=== PATIENT | male | born 1955 | race Caucasian/White ===

== ENCOUNTER 2017-06-28 11:20 | Inpatient (IN) | payer OTHER ==
[2017-06-28] MEDS ORDERED: SODIUM CHLORIDE 0.9% 1,000 ML IV ONE ×2 (11:45→14:14)
[2017-06-28] MEDS ORDERED: HYDROmorphone 1 MG/ML SYRINGE IVP STA ×4 (11:45→14:16)
[2017-06-28 12:13] LABS: BASOPHILS # (AUTO) 0.1 10^3/uL (0.0-0.1); BASOPHILS % (AUTO) 0.6 %; EOSINOPHILS % (AUTO) 0.4 %; HGB - HEMOGLOBIN 14.6 g/dL (14.0-18.0); LYMPHOCYTES # (AUTO) 1.8 10^3/uL (1.5-3.5); LYMPHOCYTES % (AUTO) 14.3 %; MEAN CORPUSCULAR HEMOGLOBIN 34.1 pg (27.0-31.0); MEAN CORPUSCULAR HGB CONC 35.2 g/dL (32.0-36.0); MONOCYTES # (AUTO) 1.1 10^3/uL (0.0-1.0); MONOCYTES % (AUTO) 8.9 %; NEUTROPHILS # (AUTO) 9.4 10^3/uL (1.5-6.6); NEUTROPHILS % (AUTO) 75.8 %; PLT - PLATELET COUNT 207 10^3/uL (130-450); RED BLOOD COUNT 4.27 10^6/uL (4.70-6.10); RED CELL DISTRIBUTION WIDTH 12.7 % (12.0-15.0); WHITE BLOOD COUNT 12.3 x10^3/uL (4.8-10.8)
[2017-06-28] MEDS ORDERED: IOPAMIDOL-300 100 ML VIAL ONE (12:28)
--- NOTE | 2017-06-28 12:39 | ED Physician Documentation ---
History of Present Illness - Stated complaint Stated Complaint: SIDE PX - Chief complaint Chief Complaint: Abd Pain - Additonal information Additional information: hx from pt 62 male pshx ventral and inguinal hernia severe right lower abd pain and distension started last nightno fever chills no NVD no blood in BM or urine Review of Systems Constitutional: denies: Fever, Chills Cardiac: denies: Chest pain / pressure Respiratory: denies: Dyspnea GI: reports: Abdominal Pain. denies: Nausea, Vomiting, Diarrhea, Bloody / black stool : denies: Dysuria, Hematuria Neurologic: denies: Generalized weakness Endocrine: denies: Easy bruising / bleeding Immunocompromised: denies: Immunocompromised PD PAST MEDICAL HISTORY - Past Medical History Cardiovascular: Hypertension, High cholesterol Respiratory: COPD Neuro: TIA - Past Surgical History Past Surgical History: Yes - Present Medications Home Medications: Ambulatory Orders Medication Instructions Recorded Confirmed Lisinopril 20 mg PO DAILY 04/25/15 06/28/17 Magnesium Oxide 400 mg PO QPM 04/25/15 06/28/17 Naproxen [Naprosyn] 500 mg PO BIDWM 04/25/15 06/28/17 Pantoprazole [Protonix] 40 mg PO QDAC 04/25/15 06/28/17 Potassium Chloride [Micro-K] 10 meq PO DAILYWM 04/25/15 06/28/17 Albuterol Sulfate [Proair 2 puffs INH Q6H PRN 06/28/17 06/28/17 Respiclick] Aspirin [Aspirin EC] 81 mg PO DAILY 06/28/17 06/28/17 Cyclobenzaprine [Flexeril] 10 mg PO TID PRN 06/28/17 06/28/17 Gabapentin [Neurontin] 300 mg PO BID 06/28/17 06/28/17 Mometasone/Formoterol [Dulera 200 2 puffs INH BID 06/28/17 06/28/17 Mcg/5 Mcg Inhaler] Tiotropium [place] [Spiriva] 1 puffs INH DAILY 06/28/17 06/28/17 oxyCODONE [Roxicodone] 5 mg PO BID PRN 06/28/17 06/28/17 - Allergies Allergies/Adverse Reactions: Allergies Allergy/AdvReac Type Severity Reaction Status Date / Time No Known Drug Allergies Allergy Verified 04/25/15 22:56 - Social History Does the pt smoke?: Yes Smoking Status: Current every day smoker Does the pt drink ETOH?: Yes Does the pt have substance abuse?: No PD ED PE NORMAL - Vitals Vital signs reviewed: Yes - General General: Alert and oriented X 3 - HEENT HEENT: PERRL - Neck Neck: Supple, no meningeal sign - Cardiac Cardiac: RRR - Respiratory Respiratory: No respiratory distress, Clear bilaterally - Abdomen Abdomen: Other (tinkling bowel sounds, distended, more distended RLQ, ? palpable mass, diffusley TTP but more so RLQ, no pulsatile mass appreciated, no inguinal heria, prior surgical scars) - Derm Derm: Normal color - Neuro Neuro: Alert and oriented X 3 Results - Vitals Vitals: Vital Signs - 24 hr 06/28/17 06/28/17 06/28/17 11:32 13:50 15:56 Temperature 36.5 C 38.1 C H 37.5 C Heart Rate 114 H 114 H 100 Respiratory 20 18 18 Rate Blood Pressure 163/91 H 149/77 H 123/66 O2 Saturation 95 95 95 06/28/17 06/28/17 18:23 18:25 Temperature Heart Rate Respiratory Rate Blood Pressure O2 Saturation 95 100 Oxygen O2 Source Room air - Labs Labs: Laboratory Tests 06/28/17 06/28/17 06/28/17 12:07 12:07 13:24 WBC 12.3 H RBC 4.27 L Hgb 14.6 Hct 41.4 L MCV 97.0 H MCH 34.1 H MCHC 35.2 RDW 12.7 Plt Count 207 MPV 7.0 L Neut # 9.4 H Lymph # 1.8 Mobile # 1.1 H Eos # 0.0 Baso # 0.1 Absolute Nucleated RBC 0.00 Nucleated RBC % 0.0 Sodium 130 L Potassium 3.9 Chloride 97 L Carbon Dioxide 22 Anion Gap 11.0 BUN 8 Creatinine 0.7 Estimated GFR (MDRD) 115 Glucose 109 H Calcium 8.7 Total Bilirubin 1.2 H AST 16 ALT 15 Alkaline Phosphatase 56 Total Protein 7.6 Albumin 4.3 Globulin 3.3 Albumin/Globulin Ratio 1.3 Lipase < 10 L Urine Color YELLOW Urine Clarity CLEAR Urine pH 6.0 Ur Specific [place] 1.010 Urine Protein NEGATIVE Urine Glucose (UA) NEGATIVE Urine Ketones NEGATIVE Urine Occult Blood NEGATIVE Urine Nitrite NEGATIVE Urine Bilirubin NEGATIVE Urine Urobilinogen 0.2 (NORMAL) Ur Leukocyte Esterase NEGATIVE Ur Microscopic Review NOT INDICATED Urine Culture Comments NOT INDICATED - Rads (name of study) CT AP Radiology: See rad report (acute appy with large appendicolith and probable early perf no abscess) PD MEDICAL DECISION MAKING - ED course ED course: CT = acute appy possible perf called gen surgery Dr Cisneros at 215 PM Departure - Departure Disposition: ED Transfer to [facility] Clinical Impression: Appendicitis Qualifiers: Appendicitis type: acute appendicitis Acute appendicitis type: unspecified acute appendicitis type Qualified Code(s): K35.80 - Unspecified acute appendicitis Discharge Date/Time: 06/28/17 16:26
[2017-06-28 12:40] LABS: ALBUMIN 4.3 g/dL (3.2-5.5); ALBUMIN/GLOBULIN RATIO 1.3 (1.0-2.2); ALKALINE PHOSPHATASE 56 IU/L (42-121); ALT ALANINE AMINOTRANSFERASE 15 IU/L (10-60); AST ASPARTATE AMINOTRANSFERASE 16 IU/L (10-42); BILIRUBIN,TOTAL 1.2 mg/dL (0.2-1.0); BUN - BLOOD UREA NITROGEN 8 mg/dL (6-20); CALCIUM 8.7 mg/dL (8.5-10.3); CARBON DIOXIDE - CO2 22 mmol/L (21-32); CHLORIDE 97 mmol/L (101-111); CREATININE 0.7 mg/dL (0.6-1.2); GFR - MDRD 115 (>89); GLUCOSE 109 mg/dL (70-100); LIPASE < 10 U/L (22-51); SODIUM 130 mmol/L (135-145); TOTAL PROTEIN 7.6 g/dL (6.7-8.2)
[2017-06-28] MEDS ORDERED: IOPAMIDOL-300 100 ML VIAL IVP ONE (13:25)
[2017-06-28 13:32] LABS: BILIRUBIN,URINE NEGATIVE (NEGATIVE); GLUCOSE, URINE (UA) NEGATIVE (NEGATIVE); KETONES,URINE (UA) NEGATIVE (NEGATIVE); LEUKOCYTE ESTERASE, URINE NEGATIVE (NEGATIVE); NITRITE,URINE NEGATIVE (NEGATIVE); OCCULT BLOOD,URINE NEGATIVE (NEGATIVE); PROTEIN,URINE NEGATIVE (NEGATIVE); UROBILINOGEN,URINE 0.2 (NORMAL) E.U./dL (NORMAL)
[2017-06-28 13:36] LABS: CLARITY,URINE CLEAR (CLEAR)
--- NOTE | 2017-06-28 14:00 | CT Report ---
EXAM: CT ANGIOGRAM ABDOMEN AND PELVIS WITH CONTRAST EXAM DATE: 06/28/2017 01:25 PM. CLINICAL HISTORY: Abrupt onset severe abd pain. COMPARISONS: CT abdomen pelvis 05/07/2013. TECHNIQUE: Routine helical CT angiogram imaging was performed through the abdomen and pelvis in the a rterial phase. IV contrast: ISOVUE 300 100mL. Enteric contrast: No. Reconstructions: Coronal, sagitt al, and 3D MIP reconstructions. In accordance with CT protocol optimization, one or more of the following dose reduction techniques w ere utilized for this exam: automated exposure control, adjustment of mA and/or KV based on patient s ize, or use of iterative reconstructive technique. FINDINGS: Vasculature: Mild atherosclerosis. No aneurysm or dissection of the abdominal aorta and iliac arterie s. The visualized mesenteric and solid organ vascular structures are within normal limits. Lung Bases: Minimal bibasilar atelectasis versus scarring. Abdominal Solid Organs: The liver, spleen, pancreas, and bilateral adrenal glands demonstrate no sign ificant abnormality. Gallbladder/bile ducts: Unremarkable. Peritoneal Cavity: The appendix is dilated, measuring up to 16 mm in diameter. Large, 27 mm appendico lith and smaller, 7 mm appendicolith. There is periappendiceal inflammatory fat stranding and trace f ree fluid in the right lower quadrant. No abscess. No ascites or pneumoperitoneum. No bowel obstructi on or abnormal stool burden. High density in the cecum likely represents ingested material. Pelvic Organs: Suboptimal evaluation secondary to streak artifact. The urinary bladder and visualized pelvic organs demonstrate no gross abnormality. Bones: Degenerative change of the visualized spine, most pronounced at L4-L5. Bilateral total hip art hroplasties. Other: Postsurgical changes from presumed hernia repair in the anterior inferior abdomen. IMPRESSION: 1. Acute appendicitis with probable early perforation. No abscess. Large appendicolith. 2. No significant abnormality of the abdominal aorta and its major branches. [facility] Referring Provider Line: [phone] SITE ID: [id number]
[2017-06-28] MEDS ORDERED: PIPERACILLIN/TAZOBACTAM 3.375 GM in SODIUM CHLORIDE 0.9% MINIBAG 100 ML IV STA (14:09)
[2017-06-28] MEDS ORDERED: NICOTINE 14 MG PATCH TOP STA (14:16)
[2017-06-28] MEDS ORDERED: ACETAMINOPHEN 1,000 MG/100 ML 100 ML IV STA (14:16)
[2017-06-28] MEDS ORDERED: LIDOCAINE-MPF 2% 5 ML VIAL IM ONE (16:30)
[2017-06-28] MEDS ORDERED: fentaNYL 250 MCG/5 ML VIAL IVP ONE (16:30)
[2017-06-28] MEDS ORDERED: ACETAMINOPHEN 1,000 MG/100 ML 100 ML IV ONE (16:30)
[2017-06-28] MEDS ORDERED: PROPOFOL 200 MG/20 ML VIAL IVP ONE (16:30)
[2017-06-28] MEDS ORDERED: ONDANSETRON 4 MG/2 ML VIAL IVP ONE (16:30)
[2017-06-28] MEDS ORDERED: ROCURONIUM 50 MG/5 ML VIAL IVP ONE (16:30)
--- NOTE | 2017-06-28 16:31 | XRAY Preliminary Report ---
Exam: XR CHEST 1 VIEW X-RAY IMPRESSION: New mild left base linear hazy opacities with obscuration of the left hemidiaphragm and b lunting of the left costophrenic angle, could be atelectasis. [facility] SITE ID: [id number]
--- NOTE | 2017-06-28 16:32 | XRAY Report ---
EXAM: CHEST RADIOGRAPHY EXAM DATE: 06/28/2017 03:48 PM. CLINICAL HISTORY: Preoperative chest x-ray COMPARISON: Chest 04/25/2015. CT abdomen and pelvis 06/28/2017 TECHNIQUE: 1 view. FINDINGS: Lungs/Pleura: New mild left base linear hazy opacities with obscuration of the left hemidiaphragm and blunting of the left costophrenic angle, could be atelectasis. No pleural effusion seen on the prior CT abdomen. No pneumothorax. Mediastinum: Within exam limitations, the cardiomediastinal contour is normal. IMPRESSION: New mild left base linear hazy opacities with obscuration of the left hemidiaphragm and b lunting of the left costophrenic angle, could be atelectasis. [facility] Referring Provider Line: [phone] SITE ID: [id number]
[2017-06-28] MEDS ORDERED: BUPIVACAINE 0.25% PF 30 ML VIAL ONE (17:08)
[2017-06-28] MEDS ORDERED: LACTATED RINGERS 1,000 ML IV ONE ×2 (17:16→18:52)
[2017-06-28] MEDS ORDERED: BUPIVACAINE 0.25% PF 30 ML VIAL SUBQ ONE ×2 (18:01)
[2017-06-28] MEDS ORDERED: ALBUTEROL 6.7 GM INHALER INH PRN (18:29)
[2017-06-28] MEDS ORDERED: ALBUTEROL NEB 2.5 MG/3 ML INH ONE (18:37)
[2017-06-28] MEDS: HYDROmorphone 1 MG/ML SYRINGE IVP PRN ×5 (18:44→23:38)
[2017-06-28] MEDS ORDERED: KETOROLAC 15 MG/ML VIAL ONE (19:18)
[2017-06-28] MEDS: SODIUM CHLORIDE FLUSH 0.9% 10 ML SYRINGE IVP SCH (20:08)
[2017-06-28] MEDS: NICOTINE 14 MG PATCH TOP SCH (20:12)
[2017-06-28] MEDS: GABAPENTIN 300 MG CAPSULE PO SCH (20:42)
[2017-06-28] MEDS: ACETAMINOPHEN 1,000 MG/100 ML 100 ML IV SCH (20:42)
[2017-06-28] MEDS: SODIUM CHLORIDE FLUSH 0.9% 10 ML SYRINGE IVP PRN ×3 (20:43→23:38)
[2017-06-28] MEDS: PANTOPRAZOLE 40 MG VIAL IVP SCH (20:43)
[2017-06-28] MEDS ORDERED: MOMETASONE INH SCH (21:00)
[2017-06-28] MEDS ORDERED: FORMOTEROL INH SCH (21:00)
[2017-06-28] MEDS: PIPERACILLIN/TAZOBACTAM 3.375 GM in SODIUM CHLORIDE 0.9% MINIBAG 100 ML IV SCH (21:04)
[2017-06-28] MEDS: LACTATED RINGERS 1,000 ML IV SCH (22:00)
[2017-06-29] MEDS: LACTATED RINGERS 1,000 ML IV SCH ×2 (03:00→12:37)
[2017-06-29] MEDS: PIPERACILLIN/TAZOBACTAM 3.375 GM in SODIUM CHLORIDE 0.9% MINIBAG 100 ML IV SCH ×4 (03:00→20:09)
[2017-06-29] MEDS: HYDROmorphone 1 MG/ML SYRINGE IVP PRN ×3 (03:01→06:51)
[2017-06-29] MEDS: SODIUM CHLORIDE FLUSH 0.9% 10 ML SYRINGE IVP PRN ×4 (03:01→06:51)
[2017-06-29] MEDS: KETOROLAC 15 MG/ML VIAL IVP PRN ×3 (03:40→16:55)
[2017-06-29] MEDS: ACETAMINOPHEN 1,000 MG/100 ML 100 ML IV SCH ×4 (03:50→19:34)
[2017-06-29 05:34] LABS: BASOPHILS % (AUTO) 0.5 %; EOSINOPHILS # (AUTO) 0.1 10^3/uL (0.0-0.7); EOSINOPHILS % (AUTO) 0.9 %; HGB - HEMOGLOBIN 12.9 g/dL (14.0-18.0); LYMPHOCYTES # (AUTO) 0.8 10^3/uL (1.5-3.5); LYMPHOCYTES % (AUTO) 13.5 %; MEAN CORPUSCULAR HEMOGLOBIN 33.2 pg (27.0-31.0); MEAN CORPUSCULAR HGB CONC 33.4 g/dL (32.0-36.0); MEAN CORPUSCULAR VOLUME 99.4 fL (80.0-94.0); MEAN PLATELET VOLUME 7.3 fL (7.4-11.4); MONOCYTES # (AUTO) 0.5 10^3/uL (0.0-1.0); MONOCYTES % (AUTO) 7.6 %; NEUTROPHILS # (AUTO) 4.7 10^3/uL (1.5-6.6); NEUTROPHILS % (AUTO) 77.5 %; PLT - PLATELET COUNT 170 10^3/uL (130-450); RED CELL DISTRIBUTION WIDTH 13.1 % (12.0-15.0)
[2017-06-29 06:07] LABS: CALCIUM 7.8 mg/dL (8.5-10.3); CREATININE 0.8 mg/dL (0.6-1.2)
[2017-06-29] MEDS: PANTOPRAZOLE 40 MG VIAL IVP SCH (06:46)
[2017-06-29] MEDS: SODIUM CHLORIDE FLUSH 0.9% 10 ML SYRINGE IVP SCH ×3 (08:13→10:31)
[2017-06-29] MEDS ORDERED: TIOTROPIUM INHALER INH SCH (09:00)
[2017-06-29] MEDS: LISINOPRIL 20 MG TABLET PO SCH (10:28)
[2017-06-29] MEDS: GABAPENTIN 300 MG CAPSULE PO SCH ×2 (10:29→20:09)
[2017-06-29] MEDS: NICOTINE 14 MG PATCH TOP SCH (10:29)
[2017-06-29] MEDS: TIOTROPIUM INHALER INH SCH (14:02)
[2017-06-29] MEDS: HEPARIN 5,000 UNIT/ML VIAL SUBQ SCH (20:14)
[2017-06-30] MEDS: LACTATED RINGERS 1,000 ML IV SCH ×2 (01:56→13:05)
[2017-06-30] MEDS: ACETAMINOPHEN 1,000 MG/100 ML 100 ML IV SCH ×4 (01:56→20:21)
[2017-06-30] MEDS: PIPERACILLIN/TAZOBACTAM 3.375 GM in SODIUM CHLORIDE 0.9% MINIBAG 100 ML IV SCH ×4 (01:57→20:30)
--- NOTE | 2017-06-30 02:17 | OPERATIVE REPORT ---
DATE OF SERVICE: 06/28/2017 Physician: Asad Cisneros MD PREOPERATIVE DIAGNOSIS: Acute appendicitis. POSTOPERATIVE DIAGNOSIS: Acute perforated appendicitis. PROCEDURE PERFORMED: Laparoscopic appendectomy with partial cecectomy. SURGEON: Asad Cisneros MD ANESTHESIA: General, Dr. Mcclellan. INDICATIONS FOR PROCEDURE: The patient is a 62-year-old male who presents with a 2-day history of pain in the right lower quadrant. PHYSICAL EXAMINATION: He is tender in the right lower quadrant. Elevated white blood cell count. CT scan shows a probable appendicitis with some fluid around the appendix, possibly secondary to perforation. FINDINGS AT SURGERY: Patient had a perforated appendicitis located at the base of the appendix. He had generalized peritonitis in the right lower quadrant. Because of the perforation at the base of the appendix, part of the cecum was removed in order to staple across tissue that was not significantly involved in the inflammation from the appendicitis. PROCEDURE: After informed consent was obtained, the patient was taken to the operating room, placed in supine position. General endotracheal anesthesia was administered. The patient's abdomen was then prepped and draped in usual sterile fashion. He had a previous umbilical hernia repair and therefore, an incision was then made in the skin in the left upper quadrant. A 5 mm Optiview trocar was then inserted through the incision, through the fascia, and into abdominal cavity under direct vision. The abdomen was then insufflated. Looking inside. No injuries were noted. A 5 mm port was then placed in the left lower quadrant and in the supraumbilical area under direct vision. Attention was then turned to the right lower quadrant. The patient was found to have appendicitis. A 5 mm port at the umbilicus at the supraumbilical area was then replaced with a 12 mm port, a 5 mm port was then placed in the right upper quadrant under direct vision. The appendix was then mobilized by dividing the adhesions of the appendix to the sidewall using cautery. Once the appendix had been freed up, perforation was identified at its base where it was connected to the cecum. A LigaSure cautery device was then used to divide the mesentery of the appendix to the cecum. Because the appendicitis was at the base of the appendix, part of the cecum needed to be removed. The cecum was then mobilized by dividing the peritoneal attachments. A ARTIE 45 stapling device was then placed across the cecum at the juncture of the appendix and the ileocecal valve. Care was taken to avoid encroachment upon the ileocecal valve. A second ARTIE 45 stapling device was then placed across the cecum completing the division. The staple line appeared to be intact without any leakage. The appendix and part of the cecum was then placed in the Endobag and removed through the umbilical port. Right lower quadrant was thoroughly irrigated until the return fluid was clear. A 19 round ALISA drain was then placed through the right upper quadrant port site and into the right lower quadrant going down into the pelvis. The drain was secured to skin using 3-0 nylon suture. The ports were then removed. No bleeding was noted at the port sites. The umbilical fascial defect was closed using 0 Vicryl suture. Skin incisions were closed using 4-0 Monocryl subcuticular stitch. This was done except for at the umbilical area, which was stapled and having a dry dressing was being applied. Dermabond was then applied to the other 2 incision sites where Monocryl was used to close the skin. The patient was then awakened, extubated, and taken from the operating room in stable condition. ESTIMATED BLOOD LOSS: 20 mL COMPLICATIONS: None. CONDITION OF THE PATIENT AT END OF PROCEDURE: Stable. SPECIMENS: Appendix and partial cecum along with fluid for Gram stain, culture and sensitivity. CLASSIFICATION OF WOUND: Contaminated. TD: 06/30/2017 02:16
[2017-06-30] MEDS: SODIUM CHLORIDE FLUSH 0.9% 10 ML SYRINGE IVP SCH ×3 (02:22→17:56)
[2017-06-30 05:48] LABS: BASOPHILS % (AUTO) 0.6 %; EOSINOPHILS # (AUTO) 0.1 10^3/uL (0.0-0.7); EOSINOPHILS % (AUTO) 1.5 %; LYMPHOCYTES # (AUTO) 0.9 10^3/uL (1.5-3.5); MEAN CORPUSCULAR HEMOGLOBIN 34.4 pg (27.0-31.0); MEAN CORPUSCULAR HGB CONC 34.6 g/dL (32.0-36.0); MEAN CORPUSCULAR VOLUME 99.3 fL (80.0-94.0); MEAN PLATELET VOLUME 7.4 fL (7.4-11.4); MONOCYTES # (AUTO) 0.6 10^3/uL (0.0-1.0); MONOCYTES % (AUTO) 9.1 %; NEUTROPHILS # (AUTO) 4.5 10^3/uL (1.5-6.6); NEUTROPHILS % (AUTO) 73.8 %; PLT - PLATELET COUNT 165 10^3/uL (130-450); RED BLOOD COUNT 3.49 10^6/uL (4.70-6.10); RED CELL DISTRIBUTION WIDTH 12.9 % (12.0-15.0); WHITE BLOOD COUNT 6.1 x10^3/uL (4.8-10.8)
[2017-06-30] MEDS: PANTOPRAZOLE 40 MG TABLET PO SCH (06:36)
[2017-06-30] MEDS: NICOTINE 14 MG PATCH TOP SCH (08:57)
[2017-06-30] MEDS: GABAPENTIN 300 MG CAPSULE PO SCH ×2 (08:58→21:11)
[2017-06-30] MEDS: LISINOPRIL 20 MG TABLET PO SCH (08:58)
[2017-06-30] MEDS: HEPARIN 5,000 UNIT/ML VIAL SUBQ SCH ×2 (09:00→21:14)
[2017-06-30] MEDS: TIOTROPIUM INHALER INH SCH (09:10)
[2017-06-30] MEDS: KETOROLAC 15 MG/ML VIAL IVP PRN ×2 (09:37→20:21)
[2017-06-30] MEDS: ALBUTEROL NEB 2.5 MG/3 ML INH PRN (19:45)
[2017-06-30] MEDS: HYDROmorphone 1 MG/ML SYRINGE IVP PRN (21:12)
[2017-07-01] MEDS: HYDROmorphone 1 MG/ML SYRINGE IVP PRN ×3 (00:03→14:42)
[2017-07-01] MEDS: SODIUM CHLORIDE FLUSH 0.9% 10 ML SYRINGE IVP SCH ×3 (00:03→17:36)
[2017-07-01] MEDS: PIPERACILLIN/TAZOBACTAM 3.375 GM in SODIUM CHLORIDE 0.9% MINIBAG 100 ML IV SCH (01:58)
[2017-07-01] MEDS: ACETAMINOPHEN 1,000 MG/100 ML 100 ML IV SCH ×3 (03:10→14:33)
[2017-07-01 05:20] LABS: BASOPHILS % (AUTO) 0.4 %; EOSINOPHILS # (AUTO) 0.2 10^3/uL (0.0-0.7); HGB - HEMOGLOBIN 11.3 g/dL (14.0-18.0); LYMPHOCYTES # (AUTO) 0.9 10^3/uL (1.5-3.5); LYMPHOCYTES % (AUTO) 15.3 %; MEAN CORPUSCULAR HEMOGLOBIN 33.4 pg (27.0-31.0); MEAN CORPUSCULAR HGB CONC 33.9 g/dL (32.0-36.0); MEAN CORPUSCULAR VOLUME 98.6 fL (80.0-94.0); MEAN PLATELET VOLUME 6.9 fL (7.4-11.4); MONOCYTES # (AUTO) 0.5 10^3/uL (0.0-1.0); MONOCYTES % (AUTO) 8.4 %; NEUTROPHILS # (AUTO) 4.5 10^3/uL (1.5-6.6); NEUTROPHILS % (AUTO) 72.9 %; PLT - PLATELET COUNT 165 10^3/uL (130-450); RED BLOOD COUNT 3.38 10^6/uL (4.70-6.10); RED CELL DISTRIBUTION WIDTH 12.7 % (12.0-15.0); WHITE BLOOD COUNT 6.2 x10^3/uL (4.8-10.8)
[2017-07-01] MEDS: PANTOPRAZOLE 40 MG TABLET PO SCH (06:05)
[2017-07-01] MEDS: TIOTROPIUM INHALER INH SCH (08:00)
[2017-07-01] MEDS: GABAPENTIN 300 MG CAPSULE PO SCH ×2 (08:41→21:33)
[2017-07-01] MEDS: NICOTINE 14 MG PATCH TOP SCH (08:42)
[2017-07-01] MEDS: LISINOPRIL 20 MG TABLET PO SCH (08:42)
[2017-07-01] MEDS: MEROPENEM 1 GM in SODIUM CHLORIDE 0.9% MINIBAG 100 ML IV SCH ×2 (08:42→17:30)
[2017-07-01] MEDS: ALBUTEROL NEB 2.5 MG/3 ML INH PRN ×2 (09:10→17:45)
[2017-07-01] MEDS: HEPARIN 5,000 UNIT/ML VIAL SUBQ SCH ×2 (10:08→21:33)
[2017-07-01] MEDS ORDERED: CYCLOBENZAPRINE 10 MG TABLET PO PRN (14:35)
[2017-07-01] MEDS ORDERED: oxyCOD/ACETAMIN 5 MG/325 MG TABLET PO PRN (14:35)
[2017-07-01] MEDS: SODIUM CHLORIDE FLUSH 0.9% 10 ML SYRINGE IVP PRN (14:42)
[2017-07-01] MEDS: ACETAMINOPHEN 325 MG TABLET PO PRN (21:33)
[2017-07-02] MEDS: HYDROmorphone 1 MG/ML SYRINGE IVP PRN ×2 (00:10→10:39)
[2017-07-02] MEDS: MEROPENEM 1 GM in SODIUM CHLORIDE 0.9% MINIBAG 100 ML IV SCH ×3 (00:17→16:08)
[2017-07-02] MEDS: SODIUM CHLORIDE FLUSH 0.9% 10 ML SYRINGE IVP SCH ×4 (00:26→23:43)
[2017-07-02] MEDS: PANTOPRAZOLE 40 MG TABLET PO SCH (06:19)
[2017-07-02] MEDS: ALBUTEROL NEB 2.5 MG/3 ML INH PRN ×2 (06:40→18:23)
[2017-07-02] MEDS: TIOTROPIUM INHALER INH SCH (06:44)
[2017-07-02] MEDS: HEPARIN 5,000 UNIT/ML VIAL SUBQ SCH ×2 (08:51→21:17)
[2017-07-02] MEDS: GABAPENTIN 300 MG CAPSULE PO SCH ×2 (08:52→21:17)
[2017-07-02] MEDS: LISINOPRIL 20 MG TABLET PO SCH (08:52)
[2017-07-02] MEDS: NICOTINE 14 MG PATCH TOP SCH (08:53)
[2017-07-02] MEDS: SODIUM CHLORIDE FLUSH 0.9% 10 ML SYRINGE IVP PRN ×2 (10:39→16:09)
[2017-07-02] MEDS: HYDROmorphone 2 MG TABLET PO PRN ×2 (13:16→19:21)
[2017-07-02] MEDS: ACETAMINOPHEN 325 MG TABLET PO PRN ×2 (16:21→23:44)
[2017-07-02 19:38] LABS: BILIRUBIN,URINE NEGATIVE (NEGATIVE); GLUCOSE, URINE (UA) NEGATIVE (NEGATIVE); KETONES,URINE (UA) NEGATIVE (NEGATIVE); LEUKOCYTE ESTERASE, URINE NEGATIVE (NEGATIVE); NITRITE,URINE NEGATIVE (NEGATIVE); OCCULT BLOOD,URINE NEGATIVE (NEGATIVE); PROTEIN,URINE NEGATIVE (NEGATIVE); UROBILINOGEN,URINE 0.2 (NORMAL) E.U./dL (NORMAL)
[2017-07-02 19:39] LABS: CLARITY,URINE CLEAR (CLEAR)
--- NOTE | 2017-07-02 22:43 | XRAY Report ---
EXAM: CHEST RADIOGRAPHY EXAM DATE: 07/02/2017 06:10 PM. CLINICAL HISTORY: Fever. COMPARISON: Chest 06/28/2017. Chest 2 views 04/25/2015 TECHNIQUE: 2 views. FINDINGS: Lungs/Pleura: Small bilateral pleural effusions appear slightly increased. Minimal opacity left base, probable atelectasis, however pneumonia is not excluded. No pneumothorax. Mediastinum: Heart and mediastinal contours are unremarkable. IMPRESSION: Small bilateral pleural effusions appear slightly increased. Minimal opacity left base, p robable atelectasis, however pneumonia is not excluded. [facility] Referring Provider Line: [phone] SITE ID: [id number]
[2017-07-02] MEDS ORDERED: PIPERACILLIN/TAZOBACTAM 3.375 GM in SODIUM CHLORIDE 0.9% MINIBAG 100 ML IV SCH ×4 (23:00)
[2017-07-03] MEDS: MEROPENEM 1 GM in SODIUM CHLORIDE 0.9% MINIBAG 100 ML IV SCH ×3 (00:06→16:23)
[2017-07-03] MEDS: HYDROmorphone 1 MG/ML SYRINGE IVP PRN ×7 (00:18→21:21)
[2017-07-03] MEDS: HYDROmorphone 2 MG TABLET PO PRN ×2 (01:06→07:41)
[2017-07-03] MEDS: SODIUM CHLORIDE FLUSH 0.9% 10 ML SYRINGE IVP PRN ×6 (04:37→17:10)
[2017-07-03 04:54] LABS: BASOPHILS % (AUTO) 0.8 %; EOSINOPHILS # (AUTO) 0.2 10^3/uL (0.0-0.7); EOSINOPHILS % (AUTO) 3.7 %; HGB - HEMOGLOBIN 11.3 g/dL (14.0-18.0); LYMPHOCYTES # (AUTO) 1.2 10^3/uL (1.5-3.5); LYMPHOCYTES % (AUTO) 26.3 %; MEAN CORPUSCULAR HEMOGLOBIN 33.2 pg (27.0-31.0); MEAN CORPUSCULAR HGB CONC 33.7 g/dL (32.0-36.0); MEAN CORPUSCULAR VOLUME 98.5 fL (80.0-94.0); MEAN PLATELET VOLUME 6.5 fL (7.4-11.4); MONOCYTES # (AUTO) 0.9 10^3/uL (0.0-1.0); MONOCYTES % (AUTO) 20.7 %; NEUTROPHILS # (AUTO) 2.1 10^3/uL (1.5-6.6); NEUTROPHILS % (AUTO) 48.5 %; PLT - PLATELET COUNT 199 10^3/uL (130-450); RED CELL DISTRIBUTION WIDTH 12.9 % (12.0-15.0); WHITE BLOOD COUNT 4.4 x10^3/uL (4.8-10.8)
[2017-07-03] MEDS: ALBUTEROL NEB 2.5 MG/3 ML INH PRN ×2 (07:20→14:00)
[2017-07-03] MEDS: PANTOPRAZOLE 40 MG TABLET PO SCH (07:41)
[2017-07-03] MEDS ORDERED: PIPERACILLIN/TAZOBACTAM 3.375 GM in SODIUM CHLORIDE 0.9% MINIBAG 100 ML IV SCH ×4 (09:00)
[2017-07-03] MEDS: GABAPENTIN 300 MG CAPSULE PO SCH (09:06)
[2017-07-03] MEDS: LISINOPRIL 20 MG TABLET PO SCH (09:06)
[2017-07-03] MEDS: SODIUM CHLORIDE FLUSH 0.9% 10 ML SYRINGE IVP SCH ×2 (09:06→16:15)
[2017-07-03] MEDS: NICOTINE 14 MG PATCH TOP SCH (09:07)
[2017-07-03] MEDS: HEPARIN 5,000 UNIT/ML VIAL SUBQ SCH ×2 (09:07→21:17)
[2017-07-03] MEDS: FLUCONAZOLE 200 MG/100 ML 100 ML IV SCH (11:17)
--- NOTE | 2017-07-03 11:31 | XRAY Report ---
ACUTE ABDOMINAL SERIES: 07/03/2017 COMPARISON: Two view chest 07/02/2017. INDICATION: Recent appendectomy with abdominal distention. TECHNIQUE RESULT: Four views. FINDINGS: There is bibasilar atelectasis. Right upper lung atelectasis is more conspicuous on today's exam, likely accentuated by low lung volumes. No pneumothorax or pleural effusion. Mediastinum unremarkable. There are multiple dilated loops of small bowel with differential air-fluid levels. No urologic calcifications. Bilateral hip prostheses are noted. Postoperative changes of the abdomen and pelvis. IMPRESSION: SMALL BOWEL OBSTRUCTION VERSUS ILEUS. CORRELATE CLINICALLY. FOLLOWUP IS AVAILABLE CLINICALLY INDICATED. TD: 07/03/2017 11:30 [email or web address]
[2017-07-03] MEDS ORDERED: SODIUM CHLORIDE 0.9% 1,000 ML IV SCH ×2 (12:00→20:00)
[2017-07-03] MEDS ORDERED: IOPAMIDOL-300 100 ML VIAL ONE (12:08)
[2017-07-03] MEDS ORDERED: IOPAMIDOL-300 50 ML VIAL ONE (12:29)
[2017-07-03] MEDS: PIPERACILLIN/TAZOBACTAM 3.375 GM in SODIUM CHLORIDE 0.9% MINIBAG 100 ML IV SCH ×2 (12:54→19:19)
[2017-07-03] MEDS ORDERED: IOPAMIDOL-300 50 ML VIAL PO ONE (13:57)
[2017-07-03] MEDS ORDERED: IOPAMIDOL-300 100 ML VIAL IVP ONE (13:59)
[2017-07-03] MEDS ORDERED: ONDANSETRON 4 MG/2 ML VIAL IVP PRN (15:12)
[2017-07-03] MEDS ORDERED: LORazepam 2 MG/ML VIAL IVP SCH (17:00)
[2017-07-03] MEDS ORDERED: PHENOL THROAT SPRAY 177 ML MM PRN (20:25)
[2017-07-03] MEDS: ACETAMINOPHEN 1,000 MG/100 ML 100 ML IV SCH (21:16)
--- NOTE | 2017-07-03 22:00 | PROVIDER PROGRESS NOTE ---
Subjective - General Admit Date: 06/28/17 Procedure Date: 06/30/17 Post Op Days: 3 Procedure Performed: Appendectomy with partial cecectomy and placement drains due to perforation - Review of Systems Wound/Incisions: positive: Healing well, Erythema (Slight erythema at umbilicus - stapled. Old drain site dressing removed. Other incision clean dry and intact.) General: positive: Other (Some sweating.) HEENT: positive: No symptoms Pulmonary: positive: No symptoms Cardiovascular: positive: No symptoms Gastrointestinal: positive: Other (Distention still not passing gas or stool. Feels MUCH better now that NG is in.) Genitourinary: positive: No symptoms (Initially had difficulty urinating but now that NG placed can urinate.) Musculoskeletal: positive: No symptoms Skin: positive: No symptoms, Diaphoresis Psychiatric: positive: No symptoms Objective - Patient Data Reviewed Vital Signs: Yes Vital Signs: Vital Signs x48h Temp Pulse Pulse Resp BP Pulse Ox 07/03/17 20:28 38.6 C H 104 H 94 07/03/17 16:27 38.2 C H 115 H 20 119/76 94 07/03/17 15:50 37.3 C 116 H 20 151/83 H 94 07/03/17 14:00 95 18 Intake & Output: Intake and Output Totals x24h 07/01/17 07/02/17 07/03/17 23:59 23:59 23:59 Intake Total 2950 2875 2401 Output Total 50 900 1425 Balance 2900 1975 976 - Lab Results Lab Results: 07/03/17 04:03 06/29/17 04:50 Other Lab Results: Lab Results x24hrs 07/03/17 Range/Units 04:03 WBC 4.4 L (4.8-10.8) x10^3/uL RBC 3.40 L (4.70-6.10) 10^6/uL Hgb 11.3 L (14.0-18.0) g/dL Hct 33.5 L (42.0-52.0) % MCV 98.5 H (80.0-94.0) fL MCH 33.2 H (27.0-31.0) pg MCHC 33.7 (32.0-36.0) g/dL RDW 12.9 (12.0-15.0) % Plt Count 199 (130-450) 10^3/uL MPV 6.5 L (7.4-11.4) fL Neut # 2.1 (1.5-6.6) 10^3/uL Lymph # 1.2 L (1.5-3.5) 10^3/uL [place] # 0.9 (0.0-1.0) 10^3/uL Eos # 0.2 (0.0-0.7) 10^3/uL Baso # 0.0 (0.0-0.1) 10^3/uL Absolute Nucleated RBC 0.01 x10^3/uL Nucleated RBC % 0.2 /100WBC - Imaging Results Radiology Imaging: positive: Final report received, EMP read indepedently Imaging Results Comments: Ileus versus small bowel obstruction (both would be considered postoperative). - Current Medications Current Medications: Current Medications Generic Name Dose Route Start Last Admin Trade Name Freq PRN Reason Stop Dose Admin Acetaminophen 650 mg 07/01/17 20:56 07/02/17 23:44 Tylenol PO 650 mg Q6HR PRN Administration Pain or Fever > 38C (100.4F) Albuterol 2.5 mg 06/29/17 07:25 07/03/17 14:00 INH 2.5 mg Q6H PRN Administration Shortness of Air/Wheezing Cyclobenzaprine HCl 10 mg 07/01/17 14:35 07/02/17 13:16 Flexeril PO 10 mg TID PRN Administration Spasms Heparin Sodium (Porcine) 5,000 unit 06/29/17 21:00 07/03/17 21:17 SUBQ 5,000 unit BID ELEANOR Administration Hydromorphone HCl 1 mg 06/28/17 18:31 07/03/17 21:21 Dilaudid Inj Syringe IVP 1 mg Q2H PRN Administration Abdominal Pain Hydromorphone HCl 2 mg 06/28/17 18:31 07/03/17 14:58 Dilaudid Inj Syringe IVP 2 mg Q2H PRN Administration Abdominal Pain Hydromorphone HCl 4 mg 07/02/17 12:41 07/03/17 07:41 Dilaudid PO 4 mg Q6HR PRN Administration Severe Pain Meropenem 1 gm/ Sodium 100 mls @ 200 mls/hr 07/01/17 08:00 07/03/17 17:00 Chloride IV Infused Q8H ELEANOR Infusion Piperacillin Sod/Tazobactam 100 mls @ 200 mls/hr 07/03/17 12:00 07/03/17 19: 55 Sod 3.375 gm/ Sodium Chloride IV Infused Q6HR ELEANOR Infusion Fluconazole 100 mls @ 100 mls/hr 07/03/17 09:00 07/03/17 12:57 Diflucan 200 Mg/100 Ml IV Infused DAILY ELEANOR Infusion Acetaminophen 100 mls @ 400 mls/hr 07/03/17 21:00 07/03/17 21:16 Ofirmev IV 400 mls/hr Q6H ELEANOR Administration Nicotine 1 patch 06/28/17 19:00 07/03/17 09:07 Nicoderm TOP 1 patch DAILY ELEANOR Administration Ondansetron HCl 4 mg 07/03/17 15:12 07/03/17 15:29 Zofran Inj IVP 4 mg Q6HR PRN Administration Nausea / Vomiting Pantoprazole Sodium 40 mg 06/30/17 07:00 07/03/17 07:41 Protonix PO 40 mg QDAC ELEANOR Administration Phenol/Menthol 2 sprays 07/03/17 20:25 07/03/17 21:16 Chloraseptic MM 2 sprays Q2HR PRN Administration Throat Pain Sodium Chloride 10 ml 06/29/17 01:00 07/03/17 16:15 Normal Saline Flush 0.9% IVP Not Given 0100,0900,1700 ELEANOR Sodium Chloride 10 ml 06/28/17 18:26 07/03/17 17:10 Normal Saline Flush 0.9% IVP 10 ml PRN PRN Administration NEEDED PER PROVIDER ORDERS Tiotropium [place] 1 puffs 06/29/17 14:00 07/02/17 06:44 Spiriva INH 1 puffs RTDAILY EELANOR Administration - Physical Exam Wound/Incisions: positive: Other (Slight erythema at umbilicus - stapled. Old drain site dressing removed. Other incision clean dry and intact.) General Appearance: positive: Mild distress (States he feels MUCH better now that NG is in.) Eyes Bilateral: positive: No lid inflammation, Conjunctivae nml, No scleral icterus ENT: positive: No signs of dehydration Neck: positive: Trachea midline Respiratory: positive: Chest non-tender, No respiratory distress, Breath sounds nml Cardiovascular: positive: Regular rate & rhythm Abdomen: positive: Other (Very distended and tympanic. No bowel sounds.) Skin: positive: Color nml Extremities: positive: Non-tender, Nml appearance Neurologic/Psychiatric: positive: Oriented x3 Impression/Plan - Problem List Problem List: D3 s/p appendectomy and partial cecectomy for perforated appendicitis (at base) - complicated by significant inflammation/infection (see abdominal fluid cultures) and now with either early postop SBO or postop ileus 1) FEN Continue IVF support until patient regains bowel function. Appreciate IM consultation to determine how best to give this NPO patient his regular medications. 2) ID D3/10 of Meropenem/Zosyn/Fluconazole. Patient's WBC are 4 without an apparent shift but the culture of his abdominal fluid shows multiple enteric den. Consider decreasing coverage as patient's clinic course improves. 3) Postop ileus versus SBO Does not really matter which one it is as the treatment is the same - watchful waiting until it resolves. NG decompression helpful as well as as much ambulation as the patient can do. Also add shower tomorrow to help mobilize patient. 4) DVT prophylaxis TEDs and venadynes on - ambulation will help tremendously. 5) Pathology Consistent with preoperative diagnosis - no malignancy. 6) Multiple medical issues including hypertension, dyslipidemia and pulmonary disease (patient is still a smaker) Dr. Cisneros called a consultation to our IM colleagues to help with medication management although my review of the medications that he is normally on reveals that for most of them there are IV equivalents or they are not "required" to be taken. Truly appreciate IM input however.
--- NOTE | 2017-07-03 23:54 | PROVIDER PROGRESS NOTE ---
Subjective - General Admit Date: 06/28/17 Procedure Performed: Appendectomy with partial cecectomy and placement drains due to perforation - Review of Systems Wound/Incisions: positive: Other Gastrointestinal: positive: Other (c/o abdominal distension with minimal flatus and no bowel movement) Skin: positive: No symptoms, Diaphoresis Objective - Patient Data Vital Signs: Vital Signs x48h Temp Pulse Resp BP Pulse Ox 07/03/17 22:56 36.9 C 83 121/64 97 07/03/17 20:28 38.6 C H 104 H 94 07/03/17 16:27 38.2 C H 115 H 20 119/76 94 Intake & Output: Intake and Output Totals x24h 07/01/17 07/02/17 07/03/17 23:59 23:59 23:59 Intake Total 2950 2875 2501 Output Total 50 900 1750 Balance 2900 1975 751 - Lab Results Lab Results: 07/03/17 04:03 06/29/17 04:50 Other Lab Results: Lab Results x24hrs 07/03/17 Range/Units 04:03 WBC 4.4 L (4.8-10.8) x10^3/uL RBC 3.40 L (4.70-6.10) 10^6/uL Hgb 11.3 L (14.0-18.0) g/dL Hct 33.5 L (42.0-52.0) % MCV 98.5 H (80.0-94.0) fL MCH 33.2 H (27.0-31.0) pg MCHC 33.7 (32.0-36.0) g/dL RDW 12.9 (12.0-15.0) % Plt Count 199 (130-450) 10^3/uL MPV 6.5 L (7.4-11.4) fL Neut # 2.1 (1.5-6.6) 10^3/uL Lymph # 1.2 L (1.5-3.5) 10^3/uL [place] # 0.9 (0.0-1.0) 10^3/uL Eos # 0.2 (0.0-0.7) 10^3/uL Baso # 0.0 (0.0-0.1) 10^3/uL Absolute Nucleated RBC 0.01 x10^3/uL Nucleated RBC % 0.2 /100WBC - Imaging Results Radiology Imaging: positive: Other (CT scan of abdomen/pelvis no evidence of infection. Ileus most likely with inflammation in the rlq vs small bowel obstruction) - Current Medications Current Medications: Current Medications Generic Name Dose Route Start Last Admin Trade Name Freq PRN Reason Stop Dose Admin Albuterol 2.5 mg 06/29/17 07:25 07/03/17 14:00 INH 2.5 mg Q6H PRN Administration Shortness of Air/Wheezing Heparin Sodium (Porcine) 5,000 unit 06/29/17 21:00 07/03/17 21:17 SUBQ 5,000 unit BID ELEANOR Administration Hydromorphone HCl 1 mg 06/28/17 18:31 07/03/17 21:21 Dilaudid Inj Syringe IVP 1 mg Q2H PRN Administration Abdominal Pain Hydromorphone HCl 2 mg 06/28/17 18:31 07/03/17 14:58 Dilaudid Inj Syringe IVP 2 mg Q2H PRN Administration Abdominal Pain Meropenem 1 gm/ Sodium 100 mls @ 200 mls/hr 07/01/17 08:00 07/03/17 17:00 Chloride IV Infused Q8H ELEANOR Infusion Piperacillin Sod/Tazobactam 100 mls @ 200 mls/hr 07/03/17 12:00 07/03/17 19: 55 Sod 3.375 gm/ Sodium Chloride IV Infused Q6HR ELEANOR Infusion Fluconazole 100 mls @ 100 mls/hr 07/03/17 09:00 07/03/17 12:57 Diflucan 200 Mg/100 Ml IV Infused DAILY ELEANOR Infusion Acetaminophen 100 mls @ 400 mls/hr 07/03/17 21:00 07/03/17 21:35 Ofirmev IV Infused Q6H ELEANOR Infusion Nicotine 1 patch 06/28/17 19:00 07/03/17 09:07 Nicoderm TOP 1 patch DAILY ELEANOR Administration Ondansetron HCl 4 mg 07/03/17 15:12 07/03/17 15:29 Zofran Inj IVP 4 mg Q6HR PRN Administration Nausea / Vomiting Phenol/Menthol 2 sprays 07/03/17 20:25 07/03/17 21:16 Chloraseptic MM 2 sprays Q2HR PRN Administration Throat Pain Sodium Chloride 10 ml 06/29/17 01:00 07/03/17 16:15 Normal Saline Flush 0.9% IVP Not Given 0100,0900,1700 ELEANOR Sodium Chloride 10 ml 06/28/17 18:26 07/03/17 17:10 Normal Saline Flush 0.9% IVP 10 ml PRN PRN Administration NEEDED PER PROVIDER ORDERS Tiotropium [place] 1 puffs 06/29/17 14:00 07/02/17 06:44 Spiriva INH 1 puffs RTDAILY ELEANOR Administration - Physical Exam Cardiovascular: positive: Regular rate & rhythm Abdomen: positive: Other (Distension. No significant tenderness. Abdominal incision clean without evidence of infection) Impression/Plan - Problem List Problem List: 1) s/p appendectomy partial cecectomy for perforated appendicitis with localized abscess POD#5. Patient developed distension with lack of bowel movement. CT scan of abdomen pelvis did not show an abscess. Ileus most likely the cause of his distension. He has developed nausea/vomiting after oral contrast. Recommend NGT and resume IV fluids. If ileus persists, then will need PICC line and TPN. 2) Fever unknown cause. Recent CT scan of abdomen was without abscess. Some atelectasis due to abdominal distension. Palce NGT to reduce the distension. WBC normal now. Continue IV antibiotics. Zosyn appears to cover all bacteria grown from the appendix. Continue iv antibiotics.
[2017-07-04] MEDS: MEROPENEM 1 GM in SODIUM CHLORIDE 0.9% MINIBAG 100 ML IV SCH (00:16)
[2017-07-04] MEDS: PANTOPRAZOLE 40 MG VIAL IV SCH ×3 (00:16→21:39)
[2017-07-04] MEDS: SODIUM CHLORIDE FLUSH 0.9% 10 ML SYRINGE IVP SCH ×3 (00:17→21:39)
--- NOTE | 2017-07-04 00:22 | PROVIDER PROGRESS NOTE ---
Subjective - General Admit Date: 06/28/17 Procedure Performed: Appendectomy with partial cecectomy and placement drains due to perforation - Review of Systems Gastrointestinal: positive: Abdominal pain, Diarrhea Skin: positive: No symptoms, Diaphoresis Objective - Patient Data Vital Signs: Vital Signs x48h Temp Pulse Resp BP Pulse Ox 07/03/17 22:56 36.9 C 83 121/64 97 07/03/17 20:28 38.6 C H 104 H 94 07/03/17 16:27 38.2 C H 115 H 20 119/76 94 Intake & Output: Intake and Output Totals x24h 07/02/17 07/03/17 07/04/17 23:59 23:59 23:59 Intake Total 2875 2501 Output Total 900 1750 Balance 1975 751 - Lab Results Lab Results: 07/03/17 04:03 06/29/17 04:50 Other Lab Results: Lab Results x24hrs 07/03/17 Range/Units 04:03 WBC 4.4 L (4.8-10.8) x10^3/uL RBC 3.40 L (4.70-6.10) 10^6/uL Hgb 11.3 L (14.0-18.0) g/dL Hct 33.5 L (42.0-52.0) % MCV 98.5 H (80.0-94.0) fL MCH 33.2 H (27.0-31.0) pg MCHC 33.7 (32.0-36.0) g/dL RDW 12.9 (12.0-15.0) % Plt Count 199 (130-450) 10^3/uL MPV 6.5 L (7.4-11.4) fL Neut # 2.1 (1.5-6.6) 10^3/uL Lymph # 1.2 L (1.5-3.5) 10^3/uL [place] # 0.9 (0.0-1.0) 10^3/uL Eos # 0.2 (0.0-0.7) 10^3/uL Baso # 0.0 (0.0-0.1) 10^3/uL Absolute Nucleated RBC 0.01 x10^3/uL Nucleated RBC % 0.2 /100WBC - Current Medications Current Medications: Current Medications Generic Name Dose Route Start Last Admin Trade Name Freq PRN Reason Stop Dose Admin Albuterol 2.5 mg 06/29/17 07:25 07/03/17 14:00 INH 2.5 mg Q6H PRN Administration Shortness of Air/Wheezing Heparin Sodium (Porcine) 5,000 unit 06/29/17 21:00 07/03/17 21:17 SUBQ 5,000 unit BID ELEANOR Administration Hydromorphone HCl 1 mg 06/28/17 18:31 07/03/17 21:21 Dilaudid Inj Syringe IVP 1 mg Q2H PRN Administration Abdominal Pain Hydromorphone HCl 2 mg 06/28/17 18:31 07/03/17 14:58 Dilaudid Inj Syringe IVP 2 mg Q2H PRN Administration Abdominal Pain Piperacillin Sod/Tazobactam 100 mls @ 200 mls/hr 07/03/17 12:00 07/03/17 19: 55 Sod 3.375 gm/ Sodium Chloride IV Infused Q6HR ELEANOR Infusion Fluconazole 100 mls @ 100 mls/hr 07/03/17 09:00 07/03/17 12:57 Diflucan 200 Mg/100 Ml IV Infused DAILY ELEANOR Infusion Acetaminophen 100 mls @ 400 mls/hr 07/03/17 21:00 07/03/17 21:35 Ofirmev IV Infused Q6H ELEANOR Infusion Nicotine 1 patch 06/28/17 19:00 07/03/17 09:07 Nicoderm TOP 1 patch DAILY ELEANOR Administration Ondansetron HCl 4 mg 07/03/17 15:12 07/03/17 15:29 Zofran Inj IVP 4 mg Q6HR PRN Administration Nausea / Vomiting Pantoprazole Sodium 40 mg 07/03/17 23:00 07/04/17 00:16 Protonix IV 40 mg BID ELEANOR Administration Phenol/Menthol 2 sprays 07/03/17 20:25 07/03/17 21:16 Chloraseptic MM 2 sprays Q2HR PRN Administration Throat Pain Sodium Chloride 10 ml 06/29/17 01:00 07/04/17 00:17 Normal Saline Flush 0.9% IVP 10 ml 0100,0900,1700 ELEANOR Administration Sodium Chloride 10 ml 06/28/17 18:26 07/03/17 17:10 Normal Saline Flush 0.9% IVP 10 ml PRN PRN Administration NEEDED PER PROVIDER ORDERS Tiotropium [place] 1 puffs 06/29/17 14:00 07/02/17 06:44 Spiriva INH 1 puffs RTDAILY ELEANOR Administration - Physical Exam Wound/Incisions: positive: Healing well Respiratory: positive: No respiratory distress Cardiovascular: positive: Regular rate & rhythm Abdomen: positive: Other (minimal distension. No signficiant tenderness. abdominal incision clean without evidence of infection.) Impression/Plan - Problem List Problem List: 1) S/p laparoscopic appendectomy/partial cecectomy for perforated appendix with localized abscess POD#4. Ctontinues to have low grade temperature. Continue IV antibiotics. Multiple bacteria all sensitive to Zosyn. WBC normal now. Is on a regular diet with iv now saline locked. 2) Diarrhea. Check stool for c difficle infection.
--- NOTE | 2017-07-04 00:26 | PROVIDER PROGRESS NOTE ---
Subjective - General Admit Date: 06/28/17 Procedure Performed: Appendectomy with partial cecectomy and placement drains due to perforation - Review of Systems Gastrointestinal: positive: Abdominal pain Genitourinary: positive: Other (No flatus. C/o incisional pain.) Objective - Patient Data Vital Signs: Vital Signs x48h Temp Pulse Resp BP Pulse Ox 07/03/17 22:56 36.9 C 83 121/64 97 07/03/17 20:28 38.6 C H 104 H 94 07/03/17 16:27 38.2 C H 115 H 20 119/76 94 Intake & Output: Intake and Output Totals x24h 07/02/17 07/03/17 07/04/17 23:59 23:59 23:59 Intake Total 2875 2501 Output Total 900 1750 Balance 1975 751 - Lab Results Lab Results: 07/03/17 04:03 06/29/17 04:50 Other Lab Results: Lab Results x24hrs 07/03/17 Range/Units 04:03 WBC 4.4 L (4.8-10.8) x10^3/uL RBC 3.40 L (4.70-6.10) 10^6/uL Hgb 11.3 L (14.0-18.0) g/dL Hct 33.5 L (42.0-52.0) % MCV 98.5 H (80.0-94.0) fL MCH 33.2 H (27.0-31.0) pg MCHC 33.7 (32.0-36.0) g/dL RDW 12.9 (12.0-15.0) % Plt Count 199 (130-450) 10^3/uL MPV 6.5 L (7.4-11.4) fL Neut # 2.1 (1.5-6.6) 10^3/uL Lymph # 1.2 L (1.5-3.5) 10^3/uL [place] # 0.9 (0.0-1.0) 10^3/uL Eos # 0.2 (0.0-0.7) 10^3/uL Baso # 0.0 (0.0-0.1) 10^3/uL Absolute Nucleated RBC 0.01 x10^3/uL Nucleated RBC % 0.2 /100WBC - Current Medications Current Medications: Current Medications Generic Name Dose Route Start Last Admin Trade Name Freq PRN Reason Stop Dose Admin Albuterol 2.5 mg 06/29/17 07:25 07/03/17 14:00 INH 2.5 mg Q6H PRN Administration Shortness of Air/Wheezing Heparin Sodium (Porcine) 5,000 unit 06/29/17 21:00 07/03/17 21:17 SUBQ 5,000 unit BID ELEANOR Administration Hydromorphone HCl 1 mg 06/28/17 18:31 07/03/17 21:21 Dilaudid Inj Syringe IVP 1 mg Q2H PRN Administration Abdominal Pain Hydromorphone HCl 2 mg 06/28/17 18:31 07/03/17 14:58 Dilaudid Inj Syringe IVP 2 mg Q2H PRN Administration Abdominal Pain Piperacillin Sod/Tazobactam 100 mls @ 200 mls/hr 07/03/17 12:00 07/03/17 19: 55 Sod 3.375 gm/ Sodium Chloride IV Infused Q6HR ELEANOR Infusion Fluconazole 100 mls @ 100 mls/hr 07/03/17 09:00 07/03/17 12:57 Diflucan 200 Mg/100 Ml IV Infused DAILY ELEANOR Infusion Acetaminophen 100 mls @ 400 mls/hr 07/03/17 21:00 07/03/17 21:35 Ofirmev IV Infused Q6H ELEANOR Infusion Nicotine 1 patch 06/28/17 19:00 07/03/17 09:07 Nicoderm TOP 1 patch DAILY ELEANOR Administration Ondansetron HCl 4 mg 07/03/17 15:12 07/03/17 15:29 Zofran Inj IVP 4 mg Q6HR PRN Administration Nausea / Vomiting Pantoprazole Sodium 40 mg 07/03/17 23:00 07/04/17 00:16 Protonix IV 40 mg BID ELEANOR Administration Phenol/Menthol 2 sprays 07/03/17 20:25 07/03/17 21:16 Chloraseptic MM 2 sprays Q2HR PRN Administration Throat Pain Sodium Chloride 10 ml 06/29/17 01:00 07/04/17 00:17 Normal Saline Flush 0.9% IVP 10 ml 0100,0900,1700 ELEANOR Administration Sodium Chloride 10 ml 06/28/17 18:26 07/03/17 17:10 Normal Saline Flush 0.9% IVP 10 ml PRN PRN Administration NEEDED PER PROVIDER ORDERS Tiotropium [place] 1 puffs 06/29/17 14:00 07/02/17 06:44 Spiriva INH 1 puffs RTDAILY ELEANOR Administration - Physical Exam Respiratory: positive: No respiratory distress Cardiovascular: positive: Regular rate & rhythm Abdomen: positive: Other (dressin in center of abdomen post op drainage. Other incisions clean. ALISA serosangineous.) Impression/Plan - Problem List Problem List: S/p laparoscopic appendectomy with partial cecectomy POD#1. Pain somewhat control with IV pain medication. Continue iv Zosyn until cultures return. Continue NPO/IV fluids until bowel function returns. Ambulate.
[2017-07-04] MEDS: HYDROmorphone 1 MG/ML SYRINGE IVP PRN ×4 (00:58→19:54)
[2017-07-04] MEDS: PIPERACILLIN/TAZOBACTAM 3.375 GM in SODIUM CHLORIDE 0.9% MINIBAG 100 ML IV SCH ×5 (01:10→23:54)
--- NOTE | 2017-07-04 03:07 | CONSULTATION NOTE ---
DATE OF SERVICE: 07/03/2017 Physician: Lexie Reinoso MD HISTORY OF PRESENT ILLNESS: This is a 62-year-old, white male with a history of hypertension, hyperlipidemia, TIA, COPD on inhalers, still smokes cigarettes. The patient presented to the ER on 06/28/17 with abdominal pain, which was felt to have acute appendicitis, and he went to the OR and had a laparoscopic appendectomy, which did indeed show appendicitis and possibly it was a perforated appendix. Postoperatively, the patient has had abdominal distention and today agreed to have an NG tube placed, which drained 1300 mL of fluid, which relieved his abdominal pain and discomfort, and also allowed him to urinate. Today, the surgeon requested consultation from internal medicine/hospitalist for management of his medications. The patient is currently sleeping, having had pain medications and finally had been relieved from the abdominal distention by NG tube placement. MEDICATIONS At home were: 1. Three inhalers, which were: a. Advair HFA. b. ProAir. c. Also Spiriva. 2. Flexeril 10 mg p.o. t.i.d. 3. Oxycodone 5 mg b.i.d. p.r.n. pain. 4. Baby aspirin daily. 5. Potassium 10 mEq p.o. daily. 6. Protonix 40 mg p.o. daily. 7. Naprosyn 500 mg p.o. b.i.d. with meals. 8. Magnesium oxide 400 mg p.o. every evening. 9. Lisinopril 20 mg p.o. daily. 10. Gabapentin 300 mg p.o. b.i.d. SOCIAL HISTORY: The patient is a smoker of a pack a day. Denies alcohol use or illicit drug use. FAMILY HISTORY: No contributory diseases. REVIEW OF SYSTEMS: This was obtained from review of the chart while he has been here over 5 days. PHYSICAL EXAMINATION GENERAL: Somnolent, white male. He is in no distress. VITAL SIGNS: Blood pressure 121/64, heart rate 83, but earlier today was as high as 115. He had temperature of 38.6 approximately 4 hours ago. O2 saturation is 97% on 2 liters nasal cannula. HEENT: Unremarkable, except for NG tube in place and nasal cannula in place. NECK: Without JVD at a 30 degree, upright angle. No carotid bruits. LUNGS: Clear. HEART: Sounds are normal. No audible murmur. No heave or gallop. ABDOMEN: Distended, decreased bowel sounds. Nontender to light palpation. EXTREMITIES: No clubbing, cyanosis or edema. NEUROLOGIC: Could not be assessed because of sleeping. LABORATORY DATA: The last electrolytes were done 4 days ago, showing normal electrolytes and BUN and creatinine. There has been no magnesium during this admission. The last CBC was this morning with a white count of 4.4, down from 12.3 five days ago. Today's hemoglobin is 11.3 with an MCV of 98, platelet count normal at 199 today. Urinalysis yesterday was unremarkable. IMAGING: Today abdominal series showed either small-bowel obstruction or an ileus. The last chest x-ray was done yesterday which showed small bilateral pleural effusions, minimal opacity of the left base, which is probably atelectasis; however, pneumonia could not be excluded. No EKG has been done this admission. A pathology report shows the abnormal appendix. IMPRESSION 1. Acute appendicitis done laparoscopically. 2. S/P appendectomy. Postoperative ileus or small-bowel obstruction, now distention is relieved with recent nasogastric tube placement. 3. History of hypertension. 4. History of chronic obstructive pulmonary disease. 5. History of smoking. PLAN: Change p.o. to IV medications where necessary, such as the p.o. Protonix to IV Protonix 40 IV b.i.d. The inhalers may continue. Continue with your antibiotic coverage for the appendicitis. The peritoneal fluid has grown out E coli, pseudomonas, enterococcus and beta hemolytic strep, and he is on 3 antibiotics for coverage. Continue with his Nicoderm patch for nicotine urges in this heavy smoker. Blood pressure currently is acceptable and no IV medications are needed. Obtain a BMP and magnesium level. Recommend changing the IV to D5 normal saline for some calorie support parenterally. Thank you for allowing me to participate in the care of this patient. We will follow along with you. TD: 07/04/2017 03:06 JAMI
[2017-07-04] MEDS: ACETAMINOPHEN 1,000 MG/100 ML 100 ML IV SCH ×4 (03:39→21:40)
[2017-07-04] MEDS: DEXTROSE 5%-0.9% NACL 1,000 ML IV SCH ×3 (04:20→21:33)
[2017-07-04 05:08] LABS: BASOPHILS % (AUTO) 0.4 %; EOSINOPHILS % (AUTO) 3.6 %; HGB - HEMOGLOBIN 11.6 g/dL (14.0-18.0); MEAN CORPUSCULAR HEMOGLOBIN 33.6 pg (27.0-31.0); MEAN CORPUSCULAR HGB CONC 34.5 g/dL (32.0-36.0); MEAN CORPUSCULAR VOLUME 97.3 fL (80.0-94.0); MEAN PLATELET VOLUME 6.6 fL (7.4-11.4); MONOCYTES % (AUTO) 20.6 %; NEUTROPHILS % (AUTO) 51.4 %; PLT - PLATELET COUNT 222 10^3/uL (130-450); RED BLOOD COUNT 3.44 10^6/uL (4.70-6.10); RED CELL DISTRIBUTION WIDTH 12.8 % (12.0-15.0); WHITE BLOOD COUNT 4.4 x10^3/uL (4.8-10.8)
[2017-07-04 05:11] LABS: ALBUMIN 2.5 g/dL (3.2-5.5); ALBUMIN/GLOBULIN RATIO 0.7 (1.0-2.2); BILIRUBIN,TOTAL 0.9 mg/dL (0.2-1.0); CALCIUM 8.2 mg/dL (8.5-10.3); CREATININE 0.7 mg/dL (0.6-1.2); MAGNESIUM 1.7 mg/dL (1.7-2.8); PHOSPHORUS 4.2 mg/dL (2.5-4.6)
[2017-07-04 05:17] LABS: ABNORMAL LYMPHS % (MANUAL) 0 %
[2017-07-04 05:53] LABS: BAND NEUTROPHILS % (MANUAL) 5 %; DIFFERENTIAL COMMENT MANUAL DIFFERENTIAL; EOSINOPHILS # (MANUAL) 0.2 10^3/uL (0-0.7); LYMPHOCYTES # (MANUAL) 1.3 10^3/uL (1.5-3.5); LYMPHOCYTES % (MANUAL) 29 %; METAMYELOCYTES % (MANUAL) 1 %; MONOCYTES # (MANUAL) 0.8 10^3/uL (0.0-1.0); MYELOCYTES % (MANUAL) 2 %; NEUTROPHILS % (MANUAL) 41 %; PLATELET ESTIMATE, MANUAL NORMAL (130-450,000) (NORMAL); RBC MORPHOLOGY (MULTIPLE) NORMAL APPEARANCE (NORMAL)
[2017-07-04] MEDS: ALBUTEROL NEB 2.5 MG/3 ML INH PRN ×2 (07:21→18:26)
[2017-07-04] MEDS: TIOTROPIUM INHALER INH SCH ×2 (07:21→10:50)
--- NOTE | 2017-07-04 09:25 | XRAY Report ---
ACUTE ABDOMEN SERIES: 07/04/2017 COMPARISON: Acute abdomen series 07/03/2017. INDICATION: Ileus versus obstruction followup. TECHNIQUE: Three views. FINDINGS: Abdominal moncho are noted. Feeding tube tip overlies the stomach. There are a few prominent loops of bowel, much improved compared to the prior day. There are still a few air fluid levels. No obvious free air. No urologic stones. Bones grossly unremarkable. IMPRESSION: SIGNIFICANT IMPROVEMENT IN ILEUS VERSUS OBSTRUCTION, FAVOR THE FORMER. TD: 07/04/2017 09:24 [facility]
--- NOTE | 2017-07-04 10:09 | PROVIDER PROGRESS NOTE ---
Subjective - General Admit Date: 06/28/17 Procedure Date: 06/28/17 Post Op Days: 6 Procedure Performed: Appendectomy with partial cecectomy and placement drains due to perforation - Review of Systems Wound/Incisions: positive: Healing well General: positive: Other (Feels much better today after ngt and having the liquid bowel movement) HEENT: positive: No symptoms Pulmonary: positive: No symptoms Cardiovascular: positive: No symptoms Gastrointestinal: positive: Other (liquid stool this am.) Genitourinary: positive: Other (No flatus. C/o incisional pain.) Musculoskeletal: positive: No symptoms Skin: positive: No symptoms, Diaphoresis Psychiatric: positive: No symptoms Objective - Patient Data Vital Signs: Vital Signs x48h Temp Pulse Pulse Resp BP Pulse Ox 07/04/17 08:50 36.3 C L 98 20 132/61 H 94 07/04/17 07:21 74 18 07/04/17 03:26 36.6 C Intake & Output: Intake and Output Totals x24h 07/02/17 07/03/17 07/04/17 23:59 23:59 23:59 Intake Total 2875 2501 979 Output Total 900 1750 1350 Balance 1975 751 -371 - Lab Results Lab Results: 07/04/17 04:35 07/04/17 04:35 Other Lab Results: Lab Results x24hrs 07/04/17 07/04/17 Range/Units 04:35 04:35 WBC 4.4 L (4.8-10.8) x10^3/uL RBC 3.44 L (4.70-6.10) 10^6/uL Hgb 11.6 L (14.0-18.0) g/dL Hct 33.5 L (42.0-52.0) % MCV 97.3 H (80.0-94.0) fL MCH 33.6 H (27.0-31.0) pg MCHC 34.5 (32.0-36.0) g/dL RDW 12.8 (12.0-15.0) % Plt Count 222 (130-450) 10^3/uL MPV 6.6 L (7.4-11.4) fL Neut # Not Reportable Lymph # Not Reportable [place] # Not Reportable Eos # Not Reportable Baso # Not Reportable Absolute Nucleated RBC Not Reportable Total Counted 100 Band Neuts % (Manual) 5 (0 - 10) % Abnorm Lymph % (Manual) 0 % Metamyelocytes % 1 H ( - 0) % Myelocytes % 2 H ( - 0) % Nucleated RBC % Not Reportable Neutrophils # (Manual) 2.0 (1.5-6.6) 10^3/uL Lymphocytes # (Manual) 1.3 L (1.5-3.5) 10^3/uL Monocytes # (Manual) 0.8 (0.0-1.0) 10^3/uL Eosinophils # (Manual) 0.2 (0-0.7) 10^3/uL Basophils # (Manual) 0.0 (0-0.1) 10^3/uL Differential Comment MANUAL DIFFERENTIAL Platelet Estimate NORMAL (130-450,000) (NORMAL) RBC Morph Micro Appear NORMAL APPEARANCE (NORMAL) Sodium 133 L (135-145) mmol/L Potassium 3.3 L (3.5-5.0) mmol/L Chloride 98 L (101-111) mmol/L Carbon Dioxide 23 (21-32) mmol/L Anion Gap 12.0 (6-13) BUN 6 (6-20) mg/dL Creatinine 0.7 (0.6-1.2) mg/dL Estimated GFR (MDRD) 115 (>89) Glucose 86 (70-100) mg/dL Calcium 8.2 L (8.5-10.3) mg/dL Phosphorus 4.2 (2.5-4.6) mg/dL Magnesium 1.7 (1.7-2.8) mg/dL Total Bilirubin 0.9 (0.2-1.0) mg/dL AST 12 (10-42) IU/L ALT 12 (10-60) IU/L Alkaline Phosphatase 47 (42-121) IU/L Total Protein 6.0 L (6.7-8.2) g/dL Albumin 2.5 L (3.2-5.5) g/dL Globulin 3.5 (2.1-4.2) g/dL Albumin/Globulin Ratio 0.7 L (1.0-2.2) - Current Medications Current Medications: Current Medications Generic Name Dose Route Start Last Admin Trade Name Freq PRN Reason Stop Dose Admin Albuterol 2.5 mg 06/29/17 07:25 03/16/18 07:21 INH 2.5 mg Q6H PRN Administration Shortness of Air/Wheezing Heparin Sodium (Porcine) 5,000 unit 06/29/17 21:00 07/03/17 21:17 SUBQ 5,000 unit BID ELEANOR Administration Hydromorphone HCl 1 mg 06/28/17 18:31 07/04/17 05:10 Dilaudid Inj Syringe IVP 1 mg Q2H PRN Administration Abdominal Pain Hydromorphone HCl 2 mg 06/28/17 18:31 07/03/17 14:58 Dilaudid Inj Syringe IVP 2 mg Q2H PRN Administration Abdominal Pain Piperacillin Sod/Tazobactam 100 mls @ 200 mls/hr 07/03/17 12:00 07/04/17 05: 48 Sod 3.375 gm/ Sodium Chloride IV Infused Q6HR ELEANOR Infusion Fluconazole 100 mls @ 100 mls/hr 07/03/17 09:00 07/03/17 12:57 Diflucan 200 Mg/100 Ml IV Infused DAILY ELEANOR Infusion Acetaminophen 100 mls @ 400 mls/hr 07/03/17 21:00 07/04/17 04:05 Ofirmev IV Infused Q6H ELEANOR Infusion Dextrose/Sodium Chloride 1,000 mls @ 125 mls/hr 07/04/17 03:00 07/04/17 04:20 D5ns IV 125 mls/hr .Q8H ELEANOR Administration Nicotine 1 patch 06/28/17 19:00 07/03/17 09:07 Nicoderm TOP 1 patch DAILY ELEANOR Administration Ondansetron HCl 4 mg 07/03/17 15:12 07/03/17 15:29 Zofran Inj IVP 4 mg Q6HR PRN Administration Nausea / Vomiting Pantoprazole Sodium 40 mg 07/03/17 23:00 07/04/17 00:16 Protonix IV 40 mg BID ELEANOR Administration Phenol/Menthol 2 sprays 07/03/17 20:25 07/03/17 21:16 Chloraseptic MM 2 sprays Q2HR PRN Administration Throat Pain Sodium Chloride 10 ml 06/29/17 01:00 07/04/17 00:17 Normal Saline Flush 0.9% IVP 10 ml 0100,0900,1700 ELEANOR Administration Sodium Chloride 10 ml 06/28/17 18:26 07/03/17 17:10 Normal Saline Flush 0.9% IVP 10 ml PRN PRN Administration NEEDED PER PROVIDER ORDERS Tiotropium [place] 1 puffs 06/29/17 14:00 07/04/17 07:21 Spiriva INH 1 puffs RTDAILY ELEANOR Administration - Physical Exam Abdomen: positive: Other (incision clean without evidence of infection. less distension. No significant abdominal pain.) Impression/Plan - Problem List Problem List: 1) s/p laparoscopic appendectomy and partial cecectomy pod#6. CT scan shows ileus without abscess or infection. AAS today less distension. Had a liquid bowel movement. NGT 1200 initially then only [address] PICC line for tpn. Even though he ileus appears to be improving, it is unknown when he will be back on solids. 2) Fever unknown ? from lungs. Breathing better due to less abdominal distension. Currently afebrile. Continue iv antibiotics
[2017-07-04] MEDS: NICOTINE 14 MG PATCH TOP SCH (10:33)
[2017-07-04] MEDS: HEPARIN 5,000 UNIT/ML VIAL SUBQ SCH ×2 (10:34→21:37)
[2017-07-04] MEDS: FLUCONAZOLE 200 MG/100 ML 100 ML IV SCH (11:12)
--- NOTE | 2017-07-04 15:26 | CT Report ---
ABDOMEN AND PELVIS CT: 07/03/2017 COMPARISON: Comparison study abdomen and pelvis 05/07/2013. INDICATION: Recent appendectomy with abdominal distention. TECHNIQUE: Axial imaging of the abdomen was performed with intravenous contrast , 100 mL Isovue 300, and oral contrast. Coronal and sagittal reformats. FINDINGS There is bibasilar atelectasis with trace pleural effusions. The liver, spleen, pancreas, and adrenal glands appear normal. The inferior pole of the left kidney is atrophic, suggesting a prior insult. The mid and superior left kidney have a normal appearance. The right kidney also appears normal. There are multiple dilated loops of small bowel with contrast reaching the jejunum. There is significant thickening of the distal ileum with adjacent fat stranding. This is near the operative bed with prior appendectomy changes. There is similar thickening of the duodenum with mild adjacent fat stranding. No free air or abscess. There are bilateral hip prostheses. There are a few sclerotic foci of the sacrum, nonspecific. IMPRESSION 1. FAVOR ILEUS OVER OBSTRUCTION. THERE IS SIGNIFICANT MURAL THICKENING OF THE TERMINAL ILEUM WITH ADJACENT FAT STRANDING. THERE IS ALSO SIGNIFICANT THICKENING OF THE DUODENUM WITH MILD ADJACENT FAT STRANDING. 2. NO EVIDENCE OF ABSCESS OR FREE AIR. CT DOSE REDUCTION STATEMENT In accordance with CT protocol optimization, one or more of the following dose reduction techniques were utilized for this exam: automated exposure control, adjustment of mA and/or KV based on patient size, or use of iterative reconstructive technique. TD: 07/03/2017 14:49 MTDD
--- NOTE | 2017-07-04 15:45 | XRAY Report ---
FRONTAL CHEST: 07/04/2017 COMPARISON: Two view chest 07/02/2017. INDICATION: New PICC line. TECHNIQUE: Single frontal chest view. FINDINGS: The feeding tube tip overlies the left upper quadrant. Right upper extremity PICC tip overlies the superior vena cava. Clear lungs. No pneumothorax or pleural effusion. Mediastinum otherwise unremarkable. IMPRESSION: APPROPRIATE APPEARANCE OF LINES AND TUBES. NO ACUTE THORACIC FINDINGS. TD: 07/04/2017 15:44 [facility]
[2017-07-05] MEDS: HYDROmorphone 1 MG/ML SYRINGE IVP PRN ×3 (00:01→13:28)
[2017-07-05] MEDS: SODIUM CHLORIDE FLUSH 0.9% 10 ML SYRINGE IVP SCH ×4 (00:17→23:44)
[2017-07-05] MEDS: ACETAMINOPHEN 1,000 MG/100 ML 100 ML IV SCH ×3 (03:24→14:54)
[2017-07-05 05:17] LABS: BASOPHILS % (AUTO) 0.4 %; EOSINOPHILS # (AUTO) 0.1 10^3/uL (0.0-0.7); EOSINOPHILS % (AUTO) 1.3 %; HGB - HEMOGLOBIN 10.6 g/dL (14.0-18.0); LYMPHOCYTES # (AUTO) 0.8 10^3/uL (1.5-3.5); LYMPHOCYTES % (AUTO) 13.5 %; MEAN CORPUSCULAR HGB CONC 33.6 g/dL (32.0-36.0); MEAN PLATELET VOLUME 6.8 fL (7.4-11.4); MONOCYTES # (AUTO) 0.9 10^3/uL (0.0-1.0); MONOCYTES % (AUTO) 14.5 %; NEUTROPHILS # (AUTO) 4.4 10^3/uL (1.5-6.6); NEUTROPHILS % (AUTO) 70.3 %; PLT - PLATELET COUNT 256 10^3/uL (130-450); RED BLOOD COUNT 3.22 10^6/uL (4.70-6.10); RED CELL DISTRIBUTION WIDTH 12.9 % (12.0-15.0); WHITE BLOOD COUNT 6.3 x10^3/uL (4.8-10.8)
[2017-07-05] MEDS: DEXTROSE 5%-0.9% NACL 1,000 ML IV SCH ×2 (06:26→17:20)
[2017-07-05] MEDS: PIPERACILLIN/TAZOBACTAM 3.375 GM in SODIUM CHLORIDE 0.9% MINIBAG 100 ML IV SCH ×4 (06:27→23:44)
--- NOTE | 2017-07-05 08:37 | PROVIDER PROGRESS NOTE ---
Subjective - Prog Note Date Prog Note Date: 07/05/17 Prog Note Time: 08:37 - Subjective Pt reports feeling: Improved Subjective: Ed is very happy to have his NG tube removed. He denies SOB, chest pain, N/V or a new cough. Current Medications - Current Medications Current Medications: Active Medications Al Hydroxide/Mg Hydroxide (Mylanta Plus) 30 ml PO Q6H [facility] Albuterol () 2.5 mg INH Q6H PRN PRN Reason: Shortness of Air/Wheezing Last Admin: 07/04/17 18:26 Dose: 2.5 mg Enoxaparin Sodium (Lovenox) 40 mg SUBQ DAILY [facility] Hydromorphone HCl (Dilaudid Inj Syringe) 1 mg IVP Q2H PRN PRN Reason: Abdominal Pain Last Admin: 07/04/17 19:54 Dose: 1 mg Hydromorphone HCl (Dilaudid Inj Syringe) 2 mg IVP Q2H PRN PRN Reason: Abdominal Pain Last Admin: 07/05/17 00:01 Dose: 2 mg Piperacillin Sod/Tazobactam (Sod 3.375 gm/ Sodium Chloride) 100 mls @ 200 mls/ hr IV Q6HR [facility] Last Admin: 07/05/17 06:27 Dose: 200 mls/hr Fluconazole (Diflucan 200 Mg/100 Ml) 100 mls @ 100 mls/hr IV DAILY [facility] Last Infusion: 07/04/17 12:50 Dose: Infused Acetaminophen (Ofirmev) 100 mls @ 400 mls/hr IV Q6H [facility] Last Infusion: 07/05/17 03:45 Dose: Infused Dextrose/Sodium Chloride (D5ns) 1,000 mls @ 125 mls/hr IV .Q8H [facility] Last Admin: 07/05/17 06:26 Dose: 125 mls/hr Nicotine (Nicoderm) 1 patch TOP DAILY [facility] Last Admin: 07/04/17 10:33 Dose: 1 patch Ondansetron HCl (Zofran Inj) 4 mg IVP Q6HR PRN PRN Reason: Nausea / Vomiting Last Admin: 07/03/17 15:29 Dose: 4 mg Pantoprazole Sodium (Protonix) 40 mg IV BID [facility] Last Admin: 07/04/17 21:39 Dose: 40 mg Phenol/Menthol (Chloraseptic) 2 sprays MM Q2HR PRN PRN Reason: Throat Pain Last Admin: 07/03/17 21:16 Dose: 2 sprays Sodium Chloride (Normal Saline Flush 0.9%) 10 ml IVP 0100,0900,1700 [facility] Last Admin: 07/05/17 00:17 Dose: 10 ml Sodium Chloride (Normal Saline Flush 0.9%) 10 ml IVP PRN PRN PRN Reason: NEEDED PER PROVIDER ORDERS Last Admin: 07/03/17 17:10 Dose: 10 ml Tiotropium [place] (Spiriva) 1 puffs INH RTDAILY [facility] Last Admin: 07/04/17 10:50 Dose: 1 puffs Lisinopril 20 mg PO DAILY 04/25/15 Magnesium Oxide 400 mg PO QPM 04/25/15 Naproxen [Naprosyn] 500 mg PO BIDWM 04/25/15 Pantoprazole [Protonix] 40 mg PO QDAC 04/25/15 Potassium Chloride [Micro-K] 10 meq PO DAILYWM 04/25/15 Albuterol Sulfate [Proair Respiclick] 2 puffs INH Q6H PRN 06/28/17 Aspirin [Aspirin EC] 81 mg PO DAILY 06/28/17 Cyclobenzaprine [Flexeril] 10 mg PO TID PRN 06/28/17 Gabapentin [Neurontin] 300 mg PO BID 06/28/17 Tiotropium [place] [Spiriva] 1 puffs INH DAILY 06/28/17 oxyCODONE [Roxicodone] 5 mg PO BID PRN 06/28/17 Fluticasone/Salmeterol [Advair Hfa 115-21 Mcg Inhaler] 2 puffs INH BID 06/29/17 Objective - Vital Signs/Intake & Output Reviewed Vital Signs: Yes Intake & Output: Intake & Output 07/02/17 07/03/17 07/04/17 07/05/17 23:59 23:59 23:59 23:59 Intake Total 2875 2501 3639 1250 Output Total 900 1750 2051 Balance 3958 763 1278 1250 - Objective General Appearance: positive: No acute distress, Alert Eyes Bilateral: positive: Normal inspection, PERRL ENT: positive: ENT inspection nml, Pharynx nml, No signs of dehydration Neck: positive: Nml inspection, Thyroid nml Respiratory: positive: Chest non-tender, No respiratory distress, Breath sounds nml Cardiovascular: positive: Regular rate & rhythm, No gallop, Decreased pulse(s) Peripheral Pulses: 1+ Radial (R), 1+ Radial (L) Abdomen: positive: Guarding, Abnml bowel sounds, Other (rounded, soft) Back: positive: Nml inspection Skin: positive: No rash, Warm, Dry, Pallor (generally pale) Extremities: positive: Non-tender, Full ROM, Nml appearance, No pedal edema Neurologic/Psychiatric: positive: Oriented x3, CN's nml (2-12), Motor nml, Sensation nml, Depressed mood/affect Reflexes: Bicep (R): 2+, Bicep (L): 2+ - Lab Results Fish Bones: 07/06/17 05:47 07/06/17 05:47 Other Labs: Lab Results x24hrs 07/05/17 Range/Units 04:53 WBC 6.3 (4.8-10.8) x10^3/uL RBC 3.22 L (4.70-6.10) 10^6/uL Hgb 10.6 L (14.0-18.0) g/dL Hct 31.5 L (42.0-52.0) % MCV 98.0 H (80.0-94.0) fL MCH 33.0 H (27.0-31.0) pg MCHC 33.6 (32.0-36.0) g/dL RDW 12.9 (12.0-15.0) % Plt Count 256 (130-450) 10^3/uL MPV 6.8 L (7.4-11.4) fL Neut # 4.4 (1.5-6.6) 10^3/uL Lymph # 0.8 L (1.5-3.5) 10^3/uL Andrew # 0.9 (0.0-1.0) 10^3/uL Eos # 0.1 (0.0-0.7) 10^3/uL Baso # 0.0 (0.0-0.1) 10^3/uL Absolute Nucleated RBC 0.01 x10^3/uL Nucleated RBC % 0.1 /100WBC Assessment/Plan - Problem List (1) Appendicitis Impression: Patient is now s/p appendectomy and is healing nicely. His NG tube is now discontinued. Qualifiers: Appendicitis type: acute appendicitis Acute appendicitis type: unspecified acute appendicitis type Qualified Code(s): K35.80 - Unspecified acute appendicitis (2) S/P appendectomy Impression: Appendectomy with partial cecectomy and placement drains due to perforation that was performed on 06/30/17. (3) Anxiety Impression: Patient has a long standing history of anxiety and depression. Patient will be continued on home meds. (4) Hypertension Impression: Patient's blood pressure was well controlled and takes lisinopril and ASA 81 mg PO. Last charted blood pressure was 141/65. Plan: Patient was continued on home medications at the time of discharge. (5) COPD (chronic obstructive pulmonary disease) Impression: This is likely due to his life long smoking habit. He has been unsuccessful at quitting. He takes advair and spiriva at home and these have been continued for discharge. (6) Tobacco use Impression: Patient continues to smoke 1 ppd and has been a life-long tobacco user.
--- NOTE | 2017-07-05 08:39 | PROVIDER PROGRESS NOTE ---
Subjective - Prog Note Date Prog Note Date: 07/05/17 Prog Note Time: 08:35 - Subjective Subjective: vss, afeb, wbvc ok, pt says he is passing some gAS, ALSO HAD SM BHM YESTERDAY- SAYS ABD FEELS SOMEWHAT DISTENDED WITH RLQ PAIN- I DO NOT DETECT ANY PERITONITIS, BOWEL TONES ARE ACTIVE-- I REVIEWED HIS XR FROM YESTERDAY, THINK THE NG SHOULD BE ADVANCED ABOUT 3 INCHES, ALSO WILL START NG TRAINING - 3 HE CLAMPED, 1 HR SUCTION,, ADD MAALOX AND HARD CANDY OK PO, MONITOR CLOSELY- TPN TO BE STRTED IF NOT ALSREADY DONE, ACUTE ABD SERIES Fri AM-- FOLLOW CLOSELY, ambulation stressed also Objective - Vital Signs/Intake & Output Intake & Output: Intake & Output 07/02/17 07/03/17 07/04/17 07/05/17 23:59 23:59 23:59 23:59 Intake Total 2875 2501 3639 1250 Output Total 900 1750 2051 Balance 2601 511 3701 1250 - Lab Results Fish Bones: 07/05/17 04:53 07/04/17 04:35 Other Labs: Lab Results x24hrs 07/05/17 Range/Units 04:53 WBC 6.3 (4.8-10.8) x10^3/uL RBC 3.22 L (4.70-6.10) 10^6/uL Hgb 10.6 L (14.0-18.0) g/dL Hct 31.5 L (42.0-52.0) % MCV 98.0 H (80.0-94.0) fL MCH 33.0 H (27.0-31.0) pg MCHC 33.6 (32.0-36.0) g/dL RDW 12.9 (12.0-15.0) % Plt Count 256 (130-450) 10^3/uL MPV 6.8 L (7.4-11.4) fL Neut # 4.4 (1.5-6.6) 10^3/uL Lymph # 0.8 L (1.5-3.5) 10^3/uL [place] # 0.9 (0.0-1.0) 10^3/uL Eos # 0.1 (0.0-0.7) 10^3/uL Baso # 0.0 (0.0-0.1) 10^3/uL Absolute Nucleated RBC 0.01 x10^3/uL Nucleated RBC % 0.1 /100WBC
[2017-07-05] MEDS: TIOTROPIUM INHALER INH SCH (08:44)
[2017-07-05] MEDS: ALBUTEROL NEB 2.5 MG/3 ML INH PRN ×2 (08:44→14:36)
[2017-07-05] MEDS ORDERED: MAG HYDROX/AL HYDROX/SIMETH 30 ML UDC PO SCH (09:00)
[2017-07-05] MEDS: NICOTINE 14 MG PATCH TOP SCH (09:34)
[2017-07-05] MEDS: PANTOPRAZOLE 40 MG VIAL IV SCH (09:34)
[2017-07-05] MEDS: ENOXAPARIN 40 MG/0.4 ML SYRINGE SUBQ SCH (09:34)
[2017-07-05] MEDS: FLUCONAZOLE 200 MG/100 ML 100 ML IV SCH (09:47)
[2017-07-05] MEDS: SODIUM CHLORIDE FLUSH 0.9% 10 ML SYRINGE IVP PRN ×3 (14:55→19:35)
[2017-07-05] MEDS ORDERED: ACETAMINOPHEN 325 MG TABLET PO PRN (18:38)
[2017-07-05] MEDS: oxyCODONE 5 MG TABLET PO PRN (19:10)
[2017-07-05] MEDS ORDERED: MAGNESIUM OXIDE 400 MG TABLET PO SCH (21:00)
[2017-07-06] MEDS: HYDROmorphone 1 MG/ML SYRINGE IVP PRN ×4 (00:24→10:29)
[2017-07-06] MEDS: PIPERACILLIN/TAZOBACTAM 3.375 GM in SODIUM CHLORIDE 0.9% MINIBAG 100 ML IV SCH ×2 (05:36→11:46)
[2017-07-06 06:36] LABS: BASOPHILS % (AUTO) 0.5 %; EOSINOPHILS # (AUTO) 0.2 10^3/uL (0.0-0.7); EOSINOPHILS % (AUTO) 4.3 %; HGB - HEMOGLOBIN 10.1 g/dL (14.0-18.0); LYMPHOCYTES % (AUTO) 18.1 %; MEAN CORPUSCULAR HEMOGLOBIN 33.4 pg (27.0-31.0); MEAN CORPUSCULAR HGB CONC 34.2 g/dL (32.0-36.0); MEAN CORPUSCULAR VOLUME 97.8 fL (80.0-94.0); MONOCYTES # (AUTO) 0.7 10^3/uL (0.0-1.0); MONOCYTES % (AUTO) 11.8 %; NEUTROPHILS # (AUTO) 3.6 10^3/uL (1.5-6.6); NEUTROPHILS % (AUTO) 65.3 %; PLT - PLATELET COUNT 287 10^3/uL (130-450); RED BLOOD COUNT 3.02 10^6/uL (4.70-6.10); RED CELL DISTRIBUTION WIDTH 12.8 % (12.0-15.0); WHITE BLOOD COUNT 5.5 x10^3/uL (4.8-10.8)
[2017-07-06 06:56] LABS: ALBUMIN 2.5 g/dL (3.2-5.5); ALBUMIN/GLOBULIN RATIO 0.8 (1.0-2.2); ALKALINE PHOSPHATASE 43 IU/L (42-121); ALT ALANINE AMINOTRANSFERASE 14 IU/L (10-60); AST ASPARTATE AMINOTRANSFERASE 15 IU/L (10-42); BILIRUBIN,TOTAL 0.4 mg/dL (0.2-1.0); BUN - BLOOD UREA NITROGEN < 5 mg/dL (6-20); CALCIUM 7.9 mg/dL (8.5-10.3); CARBON DIOXIDE - CO2 24 mmol/L (21-32); CHLORIDE 104 mmol/L (101-111); CREATININE 0.6 mg/dL (0.6-1.2); GFR - MDRD 137 (>89); GLUCOSE 94 mg/dL (70-100); MAGNESIUM 1.7 mg/dL (1.7-2.8); SODIUM 137 mmol/L (135-145); TOTAL PROTEIN 5.7 g/dL (6.7-8.2)
[2017-07-06] MEDS: TIOTROPIUM INHALER INH SCH (08:27)
[2017-07-06] MEDS: ALBUTEROL NEB 2.5 MG/3 ML INH PRN ×2 (08:27→14:09)
[2017-07-06] MEDS ORDERED: ASPIRIN EC 81 MG TABLET PO SCH (09:00)
[2017-07-06] MEDS ORDERED: PANTOPRAZOLE 40 MG TABLET PO SCH (09:00)
[2017-07-06] MEDS: FLUCONAZOLE 200 MG/100 ML 100 ML IV SCH (09:14)
[2017-07-06] MEDS: NICOTINE 14 MG PATCH TOP SCH (09:14)
[2017-07-06] MEDS: SODIUM CHLORIDE FLUSH 0.9% 10 ML SYRINGE IVP SCH (09:14)
[2017-07-06] MEDS: ENOXAPARIN 40 MG/0.4 ML SYRINGE SUBQ SCH (09:14)
--- NOTE | 2017-07-06 09:31 | PROVIDER PROGRESS NOTE ---
Subjective - Prog Note Date Prog Note Date: 07/06/17 Prog Note Time: 09:30 - Subjective Pt reports feeling: Improved (vss, afeb, tolerating cl liq and now on fulls, says he is stooling and urinating okwbc 5.5, hct 29.6--belly exam shows some distension, but he says it is essentially normal for him--i think he is doing well from real bad appendicitis-- his gi continuity issue seems to be resolving - i suspect if he does ok during the dy today he could likely be dischaerged this evening-i would wsend him out on oral antibiotics as long as dr aguirre agrees- i told pt if dr aguirre comes in to see him to ask dr aguirre to call me so we can asll be on the same page as for as game plan and disposition) Objective - Vital Signs/Intake & Output Vital Signs: Vital Signs x48h Pulse Resp 07/06/17 08:32 69 18 Intake & Output: Intake & Output 07/03/17 07/04/17 07/05/17 07/06/17 23:59 23:59 23:59 23:59 Intake Total 2501 3639 3650 1550 Output Total 1750 2051 Balance 751 1588 3650 1550 - Lab Results Fish Bones: 07/06/17 05:47 07/06/17 05:47 Other Labs: Lab Results x24hrs 07/06/17 07/06/17 Range/Units 05:47 05:47 WBC 5.5 (4.8-10.8) x10^3/uL RBC 3.02 L (4.70-6.10) 10^6/uL Hgb 10.1 L (14.0-18.0) g/dL Hct 29.6 L (42.0-52.0) % MCV 97.8 H (80.0-94.0) fL MCH 33.4 H (27.0-31.0) pg MCHC 34.2 (32.0-36.0) g/dL RDW 12.8 (12.0-15.0) % Plt Count 287 (130-450) 10^3/uL MPV 7.0 L (7.4-11.4) fL Neut # 3.6 (1.5-6.6) 10^3/uL Lymph # 1.0 L (1.5-3.5) 10^3/uL [place] # 0.7 (0.0-1.0) 10^3/uL Eos # 0.2 (0.0-0.7) 10^3/uL Baso # 0.0 (0.0-0.1) 10^3/uL Absolute Nucleated RBC 0.00 x10^3/uL Nucleated RBC % 0.1 /100WBC Sodium 137 (135-145) mmol/L Potassium 3.2 L (3.5-5.0) mmol/L Chloride 104 (101-111) mmol/L Carbon Dioxide 24 (21-32) mmol/L Anion Gap 9.0 (6-13) BUN < 5 L (6-20) mg/dL Creatinine 0.6 (0.6-1.2) mg/dL Estimated GFR (MDRD) 137 (>89) Glucose 94 (70-100) mg/dL Calcium 7.9 L (8.5-10.3) mg/dL Magnesium 1.7 (1.7-2.8) mg/dL Total Bilirubin 0.4 (0.2-1.0) mg/dL AST 15 (10-42) IU/L ALT 14 (10-60) IU/L Alkaline Phosphatase 43 (42-121) IU/L Total Protein 5.7 L (6.7-8.2) g/dL Albumin 2.5 L (3.2-5.5) g/dL Globulin 3.2 (2.1-4.2) g/dL Albumin/Globulin Ratio 0.8 L (1.0-2.2)
[2017-07-06] MEDS ORDERED: HYDROmorphone 1 MG/ML CARPUJECT IVP PRN ×2 (13:17→13:18)
[2017-07-06] MEDS: oxyCODONE 5 MG TABLET PO PRN (15:31)
--- NOTE | 2017-07-06 15:34 | Discharge Plan ---
Discharge Plan Disposition: Home, Self Care Condition: Good Prescriptions: Amox/Clav 875/125 [Augmentin] 1 each PO Q12H #10 Metronidazole [Flagyl] 500 mg PO Q6H #20 tablet Nicotine 14 mg Patch [Nicoderm] 1 patch TOP DAILY #14 patch oxyCODONE/ACET 5/325 [Percocet 5 mg/325 mg] 1 each PO Q4-6H #30 tablet Saccharomyces Boulardii [Florastor] 500 mg PO BID #42 capsule Diet: Soft Activity Restrictions: Activity as Tolerated Shower Restrictions: No Driving Restrictions: Yes (do not drive while obn narcotic pain medication) Weight Bearing: Full Weight Additional Instructions or Follow Up instructions: do what does not hurt as far as physical activity, you may shower, do not soak in hot tub or bath, stay non soups and mush soft diet until you follow up wirrth your surgeon in about 1 week, take antibiotics orally augmentin twice daily with food, flagyl every six hours-- antibiotics should run out in five days, take probiotic for at least 2-3 weeks,,if you experience nausea/ vomiting orfever or undue pain you should go to emergency room for evaluation-- also reglan is a prokinetic pill that may help your bowels move-- i generally give it for therr days before meals==good luckif you have questions you may call the hospital to speak to the concrete tester yangeon- that is me until Jun-- any way good luck hope all goes wellas far as pain meds go try to take as few percocet as possible, you may take advil 600 mg every six hours to supplement other pain medication---do not smoke please No Smoking: If you smoke, Please STOP! Call for help. Follow-up with: Sandeep Theodore MD [Primary Care Provider] -
[2017-07-06 15:56] VITALS: BP 141/65
--- NOTE | 2017-07-07 08:06 | DISCHARGE SUMMARY ---
Physician: Jayden Rose MD DATE OF ADMISSION: 06/28/2017 DATE OF DISCHARGE: 07/06/2017 ADMISSION DIAGNOSES 1. Complicated advanced appendicitis. 2. Medical comorbidities with what appears to be some chronic obstructive pulmonary disease, for which he is on inhalers, and pain management issues. DISCHARGE DIAGNOSES 1. Complicated advanced appendicitis. 2. Medical comorbidities with what appears to be some chronic obstructive pulmonary disease, for which he is on inhalers, and pain management issues. OPERATIONS: Laparoscopic cholecystectomy by Dr. Cisneros. The H and P was taken care of by Dr. Cisneros who brought him in and did a rather difficult appendectomy with the scope, and the patient subsequently had difficulty with GI continuity and ended up with an NG tube and a PICC line, which then he kind of started to open up and he has been on clear liquids yesterday, full liquids yesterday evening and all day today, and is tolerating a diet. He has been afebrile. White count is 5.5, hematocrit 29.6. Abdomen appears chronically somewhat distended. He is a bit malnourished with an albumin of 2.5, but he is tolerating full liquid diet, having bowel movements and jumping at the bit wanting to go home, for which I think it is reasonable for him to be discharged to home on oral antibiotics. I am sending him out on Augmentin 875/125 one pill b.i.d. for 5 days, Flagyl 500 mg every 6 hours for 5 days, Percocet 1 pill every 4-6 hours p.r.n. pain. He can augment that with Advil 600 mg every 6 hours. In addition, he is on Florastor 500 mg b.i.d. He is instructed not to smoke. He is instructed to call Dr. Cisneros's office for followup clinic appointment in about a week to 10 days. Should he have any problems with fever, nausea and vomiting, worsening pain, he likely should come back to the emergency room for evaluation. In addition, I wrote him a script for a nicotine patch. All in all, he seems to be doing well. I do not think he requires IV antibiotics at the present time with him being afebrile and normal white count for at least the last 48 hours. Oral antibiotics should take care of whatever is going on, if anything, and he is instructed to try to live a healthy lifestyle without cigarettes. cc: Asad Cisneros MD TD: 07/07/2017 08:05
== END 2017-07-06 17:34 | disposition home or self-care (01) | DRG 330 ==
LOC: ED 11:20 → SDS 15:10 → MS3 18:26
PROVIDERS: ADMIT Surgery; ATTEND Surgery
PROC: 0DBH4ZZ Excision of Cecum, Percutaneous Endoscopic Approach (ICD-10-PCS; 2017-06-28)
PROC: 0DTJ4ZZ Resection of Appendix, Percutaneous Endoscopic Approach (ICD-10-PCS; principal; 2017-06-28 16:07)
PROC: 02HV33Z Insertion of Infusion Device into Superior Vena Cava, Percutaneous Approach (ICD-10-PCS; 2017-07-04)
DX: K35.3 Acute appendicitis with localized peritonitis (principal); K91.89 Other postprocedural complications and disorders of digestive system; E46 Unspecified protein-calorie malnutrition; J98.11 Atelectasis; R50.9 Fever, unspecified; I10 Essential (primary) hypertension; F17.210 Nicotine dependence, cigarettes, uncomplicated; Z68.27 Body mass index [BMI] 27.0-27.9, adult; E78.5 Hyperlipidemia, unspecified; Z86.73 Personal history of transient ischemic attack (TIA), and cerebral infarction without residual deficits; Z79.51 Long term (current) use of inhaled steroids
CPT/HCPCS: 36415; 71045; 71046; 74022; 74174; 74177; 80048; 80053; 81001; 81003; 83690; 83735; 84100; 85025; 87070; 87077; 87086; 87205; 87493; 94640; 96361; 96365; 96366; 96368; 96375; 96376; 99284

== ENCOUNTER 2017-07-14 21:29 | Outpatient (CLI) | payer OTHER ==
--- NOTE | 2017-07-14 23:18 | Ultrasound Preliminary Report ---
Exam: US DUPLEX EXT VEINS RIGHT IMPRESSION: Occlusive thrombus in the mid to distal right basilic vein. No extension into the deep venous system. [facility] The call report notification system was initiated by Dr. Komal Miguel at 23:02 hrs on 07/14/17. The above findings were discussed with Dr. Ugarte by Dr. Komal Miguel at 23:17 hrs on 07/14/17. SITE ID: [id number]
--- NOTE | 2017-07-14 23:22 | Ultrasound Report ---
EXAM: RIGHT UPPER EXTREMITY VENOUS ULTRASOUND EXAM DATE: 07/14/2017 10:49 PM. CLINICAL HISTORY: Right arm pain. COMPARISON: None. TECHNIQUE: Real-time sonographic vascular imaging was performed by the group therapist through the upper extremity utilizing both color-flow and Doppler spectral analysis. Multiple claim service representative static susana ges were saved for review. FINDINGS: Internal Jugular Vein (IJV): Normal. Subclavian Vein (SCV): Normal. Axillary Vein : Normal. Cephalic Vein (superficial vein): Normal. Basilic Vein (superficial vein): Occlusive thrombus in the mid to distal right basilic vein. No exten enzo into the deep venous system. Brachial Vein: Normal. Contralateral Left Subclavian Vein: Normal. Other: None. IMPRESSION: Occlusive thrombus in the mid to distal right basilic vein. No extension into the deep venous system. [facility] The call report notification system was initiated by Dr. Komal Miguel at 23:02 hrs on 07/14/17. The above findings were discussed with Dr. Ugarte by Dr. Komal Miguel at 23:17 hrs on 07/14/17. Referring Provider Line: [phone] SITE ID: [id number]
== END 2017-07-14 21:30 | disposition home or self-care (01) ==
LOC: DI 21:29
PROVIDERS: ATTEND Family Medicine
DX: I82.611 Acute embolism and thrombosis of superficial veins of right upper extremity (principal)

== ENCOUNTER 2018-01-16 09:40 | Outpatient (CLI) | payer OTHER ==
[2018-01-16 12:30] LABS: BASOPHILS # (AUTO) 0.1 10^3/uL (0.0-0.1); BASOPHILS % (AUTO) 1.6 %; EOSINOPHILS # (AUTO) 0.1 10^3/uL (0.0-0.7); HGB - HEMOGLOBIN 15.1 g/dL (14.0-18.0); LYMPHOCYTES # (AUTO) 1.7 10^3/uL (1.5-3.5); MEAN CORPUSCULAR HEMOGLOBIN 34.8 pg (27.0-31.0); MEAN CORPUSCULAR HGB CONC 35.2 g/dL (32.0-36.0); MEAN CORPUSCULAR VOLUME 98.8 fL (80.0-94.0); MEAN PLATELET VOLUME 7.4 fL (7.4-11.4); MONOCYTES # (AUTO) 0.4 10^3/uL (0.0-1.0); MONOCYTES % (AUTO) 9.5 %; NEUTROPHILS # (AUTO) 2.1 10^3/uL (1.5-6.6); NEUTROPHILS % (AUTO) 46.9 %; PLT - PLATELET COUNT 209 10^3/uL (130-450); RED BLOOD COUNT 4.33 10^6/uL (4.70-6.10); RED CELL DISTRIBUTION WIDTH 13.1 % (12.0-15.0); WHITE BLOOD COUNT 4.4 x10^3/uL (4.8-10.8)
[2018-01-16 12:43] LABS: HB2 TOTAL 16.1 g/dL; HEMOGLOBIN A1C 0.54 g/dL; HEMOGLOBIN A1C % 5.2 % (4.6-6.2)
[2018-01-16 12:49] LABS: ALBUMIN 4.4 g/dL (3.2-5.5); ALBUMIN/GLOBULIN RATIO 1.5 (1.0-2.2); ALKALINE PHOSPHATASE 58 IU/L (42-121); ALT ALANINE AMINOTRANSFERASE 25 IU/L (10-60); AST ASPARTATE AMINOTRANSFERASE 23 IU/L (10-42); BILIRUBIN,TOTAL 0.8 mg/dL (0.2-1.0); BUN - BLOOD UREA NITROGEN 8 mg/dL (6-20); CALCIUM 8.9 mg/dL (8.5-10.3); CARBON DIOXIDE - CO2 27 mmol/L (21-32); CHLORIDE 95 mmol/L (101-111); CHOLESTEROL 219 mg/dL; CREATININE 0.8 mg/dL (0.6-1.2); GFR - MDRD 99 (>89); GLUCOSE 107 mg/dL (70-100); HDL CHOLESTEROL 55 mg/dL; LDL CHOLESTEROL,CALCULATED 125 mg/dL; LDL/HDL RATIO 2.3 (<3.6); SODIUM 131 mmol/L (135-145); TOTAL PROTEIN 7.4 g/dL (6.7-8.2); VLDL CHOLESTEROL 39 mg/dL
== END 2018-01-16 09:41 | disposition home or self-care (01) ==
LOC: LAB.WCP 09:40
PROVIDERS: ATTEND Family Medicine
DX: Z00.00 Encounter for general adult medical examination without abnormal findings (principal); I10 Essential (primary) hypertension; E78.5 Hyperlipidemia, unspecified
CPT/HCPCS: 36415; 80053; 80061; 83036; 83721; 84443; 85025

== ENCOUNTER 2018-02-28 14:43 | Outpatient (CLI) | payer OTHER ==
--- NOTE | 2018-03-01 13:22 | MRI Report ---
Reason: ROTATOR CUFF IMPINGEMENT SYNDROME Procedure Date: 02/28/2018 Accession Number: [id number] / [id number] Procedure: MRI - Shoulder RT W/O CPT Code: FULL RESULT: EXAM: RIGHT SHOULDER MRI WITHOUT CONTRAST. EXAM DATE: 02/28/2018 03:23 PM. CLINICAL HISTORY: Rotator cuff impingement syndrome. COMPARISON: Shoulder 3 view bilateral 01/27/2018 3:45 PM. TECHNIQUE: Multiplanar, multisequence T1-weighted and fluid-sensitive sequences of the shoulder without contrast. Other: None. FINDINGS: Acromioclavicular Region: The acromion is type II. Minimal acromioclavicular joint osteoarthritis. No subacromial/subdeltoid bursal fluid. Glenohumeral Region: No subluxation. No effusion or loose bodies. Mild thinning of the glenohumeral hyaline cartilage. Bone Marrow: No fracture, marrow edema or bone lesions. Labrum: There is an anteroposterior paralabral cyst measuring approximately 8 x 7 x 9 mm, undermining the posterior inferior quadrant of the labrum consistent with a labral tear. The paralabral cyst extends inferiorly, to the superior margin of the quadrilateral space. Musculature/Rotator Cuff: There is a low-grade intrasubstance tear of supraspinatus at the musculotendinous junction. There is a high-grade partial-thickness tear of the deep fibers of subscapularis at the insertion. There is no atrophy. Biceps Tendon: Previously ruptured or resected. Other: The subcutaneous tissues are unremarkable. IMPRESSION: 1. Minimal acromioclavicular joint osteoarthritis. 2. Mild glenohumeral hyaline cartilage. 3. Low-grade intrasubstance tear of supraspinatus at the musculotendinous junction. High-grade partial-thickness tear of the deep fibers of subscapularis at the insertion. 4. Prior rupture or resection of the long head of biceps. 5. Posterior inferior quadrant labral tear with an associated paralabral cyst which abuts the quadrilateral space. [facility] MUSCULOSKELETAL RADIOLOGY SECTION
== END 2018-02-28 14:44 | disposition home or self-care (01) ==
LOC: DI 14:43
PROVIDERS: ATTEND Orthopaedic Surgery
DX: M75.101 Unspecified rotator cuff tear or rupture of right shoulder, not specified as traumatic (principal); M19.011 Primary osteoarthritis, right shoulder; S43.491A Other sprain of right shoulder joint, initial encounter

== ENCOUNTER 2019-01-18 08:59 | Outpatient (CLI) | payer OTHER ==
--- NOTE | 2019-01-18 15:37 | XRAY Report ---
Reason: LEFT KNEE PAIN Procedure Date: 01/18/2019 Accession Number: [id number] / [id number] Procedure: WCP - Knee 3 View LT CPT Code: FULL RESULT: EXAM: LEFT KNEE RADIOGRAPHY EXAM DATE: 01/18/2019 03:02 PM. CLINICAL HISTORY: LEFT KNEE PAIN. COMPARISON: None. TECHNIQUE: 3 views. FINDINGS: Bones: No acute abnormality. Minimal medial compartment narrowing. Joints: Normal. No effusion. No subluxations. Soft Tissues: Normal. No soft tissue swelling. IMPRESSION: 1. No acute bony abnormality or joint effusion. 2. Minimal medial compartment osteoarthritis. [facility]
== END 2019-01-18 23:59 | disposition home or self-care (01) ==
LOC: DI.WCP 08:59 → EDSTATUS 13:46 → DI.WCP 23:59
PROVIDERS: ATTEND Nurse Practitioner
DX: M17.12 Unilateral primary osteoarthritis, left knee (principal)

== ENCOUNTER 2021-01-28 06:21 | Outpatient (CLI) | payer OTHER | END 2021-01-28 06:22 | disposition short-term general hospital (02) | LOC: EMS 06:21 | DX: I48.91 Unspecified atrial fibrillation (principal) | CPT/HCPCS: A0425; A0427 ==